=== PATIENT | female | born 1940 | race Caucasian/White ===

== ENCOUNTER → 2017-10-08 | Outpatient (CLI) | payer OTHER ==
[2015-08-24 02:40] VITALS: BP 136/84
--- NOTE | 2017-10-11 13:26 | MG ---
ACR 2 HISTORY: SCREENING Comparison: August 28, 2012 and September 26, 2016 FINDINGS: Bilateral CC and MLO projections of the right and left breast were obtained. Scattered fibroglandula r tissue is seen to be present without significant interval change. No suspicious architectural dist ortion, mass or clustered microcalcifications can be observed to suggest malignancy. No skin thicken ing or nipple retraction is appreciated. No pathological lymphadenopathy can be identified. Benign- appearing calcifications are noted within the right and left breast. IMPRESSION: NO RADIOGRAPHIC EVIDENCE OF MALIGNANCY. ACR CATEGORY 2 - benign findings. FOLLOW-UP EXAM 1 YEAR. Diagnostic CAD was utilized and reviewed. * 0 (ZERO) - ASSESSMENT INCOMPLETE; ADDITIONAL IMAGING IS NEEDED. * 1/1 (ONE) - NEGATIVE. * 2/II (TWO) - BENIGN FINDINGS. * 3/III (THREE) - PROBABLY BENIGN FINDING; SHORT INTERVAL FOLLOW-UP SUGGESTED. * 4/IV (FOUR) - SUSPICIOUS ABNORMALITY; BIOPSY SHOULD BE CONSIDERED. * 5/V - HIGHLY SUSPICIOUS OF MALIGNANCY; BIOPSY SHOULD BE PERFORMED. A NEGATIVE X-RAY REPORT SHOULD NOT DELAY BIOPSY IF A DOMINANT OR CLINICALLY SUSPICIOUS MASS IS PRESENT; 4 TO 8 PERCENT OF CANCERS ARE NOT IDENTIFIED BY X-RAY. A NEGA TIVE REPORT MAY REINFORCE THE CLINICAL IMPRESSION. ADENOSIS AND DENSE BREASTS MAY OBSCURE AN UNDERLY ING NEOPLASM. Reported By:
== END ==
LOC: RAD 09:49
PROVIDERS: ATTEND Specialist
DX: Z12.31 Encounter for screening mammogram for malignant neoplasm of breast (principal)
CPT/HCPCS: 77067

== ENCOUNTER 2019-08-19 11:06 | Observation (INO) ==
[2019-08-19 14:16] LABS: BASOPHILS # (AUTO) 0.1 X10^3/uL (0.0-0.1); EOSINOPHILS # (AUTO) 0.1 x10^3/uL (0.0-0.2); EOSINOPHILS % (AUTO) 0.6 % (0.9-2.9); HEMATOCRIT 43.3 % (36.0-47.0); HEMOGLOBIN 14.6 g/dL (12.0-16.0); LYMPHOCYTES # (AUTO) 1.4 X10^3/uL (1.3-2.9); LYMPHOCYTES % (AUTO) 14.5 % (21.0-51.0); MEAN CORPUSCULAR HEMOGLOBIN 31.7 pg (27.0-34.0); MEAN CORPUSCULAR HGB CONC 33.8 g/dL (33.0-35.0); MEAN CORPUSCULAR VOLUME 93.8 fL (80.0-100.0); MEAN PLATELET VOLUME 8.6 fL (7.4-11.0); MONOCYTES # (AUTO) 0.9 x10^3/uL (0.3-0.8); NEUTROPHILS # (AUTO) 6.9 x10^3/uL (2.2-4.8); NEUTROPHILS % (AUTO) 73.9 % (42.0-75.0); PLATELET COUNT 238 X10^3/uL (150.0-450.0); RED BLOOD COUNT 4.61 X10^6/uL (3.5-5.4); RED CELL DISTRIBUTION WIDTH 13.5 % (11.6-16.5); WHITE BLOOD COUNT 9.3 X10^3/uL (3.6-10.0)
[2019-08-19 14:24] LABS: ALANINE AMINOTRANSFERASE 15 Units/L (12-78); ALBUMIN 3.7 g/dL (3.4-5.0); ALKALINE PHOSPHATASE 79 Units/L (46-116); ASPARTATE AMINO TRANSFERASE 16 Units/L (15-37); BLOOD UREA NITROGEN 27 mg/dL (7-18); CALCIUM 9.6 mg/dL (8.5-10.1); CARBON DIOXIDE 25.3 mmol/L (21-32); CHLORIDE 107 mmol/L (98-107); CREATININE 1.27 mg/dL (0.55-1.02); SODIUM 141 mmol/L (136-145); TOTAL PROTEIN 7.6 g/dL (6.4-8.2); eGFR NON BLACK RACES 43 (>60)
[2019-08-19] MEDS: PEPCID 20 MG IV PREMIX* 20 MG/50 ML BAG IV SCH ×2 (14:24→20:35)
[2019-08-19] MEDS: NS 1000 ML 1,000 ML IV SCH (14:24)
[2019-08-19] MEDS: PROTONIX INJ 40 MG VIAL IVP SCH ×2 (14:25→20:35)
[2019-08-19 15:29] LABS: BILIRUBIN,URINE NEGATIVE (NEGATIVE); BLOOD/HEMOGLOBIN,URINE NEGATIVE (NEGATIVE); GLUCOSE, URINE NEGATIVE (NEGATIVE); KETONES,URINE NEGATIVE (NEGATIVE); LEUKOCYTE ESTERASE ,URINE NEGATIVE (NEGATIVE); NITRITES,URINE NEGATIVE (NEGATIVE); PROTEIN,URINE NEGATIVE (NEGATIVE); UROBILINOGEN,URINE NORMAL (NORMAL)
[2019-08-19 15:39] LABS: APPEARANCE,URINE CLEAR (CLEAR); COLOR,URINE PALE YELLOW (YELLOW)
--- NOTE | 2019-08-19 16:20 | DR.CONSULT ---
Consult - Consultation for Day of: Date: 08/19/19 - Chief Complaint Chief Complaint: Patient referred for rectal bleeding. Patient with complaints of hematochezia and LLQ Pain. - History of Present Illness History of Present Illness: Patient is a 79 yo female who was referred for rectal bleeding. Patient with complaints of hematochezia noted this am in stool has not seen anymore since and LLQ Pain. Patient denies dysphagia, dyspepsia, nausea, vomiting, constipation, diarrhea and melena. Last colon was 05/04/11 which showed internal hemorrhoids, sigmoid diverticulosis and hyperplastic colon polyps. Patient noted to have LLQ tenderness, Hgb 14.6, Hct 43.3, BUN 27, Creatinien 1.27 - Past Medical History Past Medical History: Coronary Artery Disease, Dyslipidemia, GERD, [place] Additional Medical History: psuedoaneurysm - Past Surgical History Surgical History: Angioplasty/Stents (x4 stents), Appendectomy, Cholecystectomy - Family History Family Medical History: Coronary Artery Disease, Hypertension - Social History Does patient currently use any type of tobacco product: No Have you used tobacco products in the last 12 months: No Type of Tobacco Use: None Does any household member use tobacco: No Alcohol Use: None Drug Use: None - Medications Home Medications: No Known Drug Allergies Allergy (Verified 08/19/19 13:41) CONTINUE taking the following medications aspirin [Aspir-81] 81 mg PO DAILY 08/19/19 [History] clopidogrel 75 mg PO DAILY 08/19/19 [History] metoprolol succinate 25 mg PO DAILY 08/19/19 [History] pantoprazole 40 mg PO DAILY 08/19/19 [History] rosuvastatin 10 mg PO HS 08/19/19 [History] - Review of Systems Gastrointestinal: See HPI, Abdominal Pain (LLQ), Hematochezia. denies: Nausea, Vomiting, Diarrhea, Constipation, Melena, Other - Physical Exam Vital Signs: Temperature 98.6 F Pulse Rate [Left Brachial] 84 Respiratory Rate 20 Blood Pressure [Right Arm] 136/84 Blood Pressure [Left Arm] 117/70 Blood Pressure 136/84 O2 Sat by Pulse Oximetry 92 Oriented: Normal Eyes: Normal Ear: Normal Nose: Normal Throat: Normal Respiratory: Clear Throughout Cardiovascular: Normal Auscultation: Bowel Sounds: Normal Palpation: Normal, Other (no distention). negative: Spleen Enlarged, Liver Enlarged, Mass Pulsatile Tenderness: LLQ Skin: Normal Musculoskeletal: Normal Psychiatric: Normal Mood Description: Calm Affect: Normal Speech Pattern: Clear, Appropriate - Plan Plan: Assessment. 1. Hematochezia, Hgb stable. 2. LLQ pain r/o diverticulitis. Plan. 1. Cont Iv Hydration, Monitor Hgb , Transfuse as needed, Possible colon on if CT scan Negative. 2. Abdoman and pelvis CT with contrast. Plan reviewed with Dr. Moore - Allergies Allergies/Adverse Reactions: Allergies Allergy/AdvReac Type Severity Reaction Status Date / Time No Known Drug Allergies Allergy Verified 08/19/19 13:41
[2019-08-19 16:37] VITALS: BMI 26.6
[2019-08-19] MEDS: RESTORIL CAP 15 MG PO PRN (23:27)
[2019-08-20 05:26] LABS: BASOPHILS # (AUTO) 0.1 X10^3/uL (0.0-0.1); BASOPHILS % (AUTO) 1.1 % (0.2-1.0); EOSINOPHILS # (AUTO) 0.2 x10^3/uL (0.0-0.2); EOSINOPHILS % (AUTO) 2.4 % (0.9-2.9); HEMOGLOBIN 13.5 g/dL (12.0-16.0); LYMPHOCYTES # (AUTO) 2.2 X10^3/uL (1.3-2.9); LYMPHOCYTES % (AUTO) 31.6 % (21.0-51.0); MEAN CORPUSCULAR HEMOGLOBIN 32.2 pg (27.0-34.0); MEAN CORPUSCULAR HGB CONC 33.8 g/dL (33.0-35.0); MEAN CORPUSCULAR VOLUME 95.1 fL (80.0-100.0); MEAN PLATELET VOLUME 9.5 fL (7.4-11.0); MONOCYTES # (AUTO) 0.8 x10^3/uL (0.3-0.8); MONOCYTES % (AUTO) 11.9 % (0.0-13.0); NEUTROPHILS # (AUTO) 3.8 x10^3/uL (2.2-4.8); PLATELET COUNT 222 X10^3/uL (150.0-450.0); RED BLOOD COUNT 4.21 X10^6/uL (3.5-5.4); RED CELL DISTRIBUTION WIDTH 13.5 % (11.6-16.5); WHITE BLOOD COUNT 7.1 X10^3/uL (3.6-10.0)
[2019-08-20] MEDS: NS 1000 ML 1,000 ML IV SCH ×2 (05:41→21:13)
[2019-08-20 05:47] LABS: ALANINE AMINOTRANSFERASE 13 Units/L (12-78); ALBUMIN 3.1 g/dL (3.4-5.0); ALKALINE PHOSPHATASE 68 Units/L (46-116); ASPARTATE AMINO TRANSFERASE 16 Units/L (15-37); BLOOD UREA NITROGEN 25 mg/dL (7-18); CALCIUM 8.8 mg/dL (8.5-10.1); CARBON DIOXIDE 22.5 mmol/L (21-32); CHLORIDE 110 mmol/L (98-107); COR CA(FOR HYPOALB) 9.5 mg/dL (8.5-10.1); SODIUM 143 mmol/L (136-145); TOTAL PROTEIN 6.6 g/dL (6.4-8.2); eGFR NON BLACK RACES 46 (>60)
--- NOTE | 2019-08-20 06:50 | CT ---
HISTORY: Left lower quadrant pain Study: CT abdomen pelvis with contrast Comparison: None available Technique: Axial post-contrast images with coronal and sagittal reformats. Dose reduction procedures were used with mA/kv adjusted for body size. Findings: The lung bases are clear. The liver, spleen, adrenal glands, and pancreas are within normal limits. The patient is status post cholecystectomy. The kidneys are unobstructed and without stones or masses. No ureteral calculi are identified. Mild calcific atherosclerotic changes present in and ectatic but nondilated abdominal aorta. There are no findings to suggest enteritis colitis or diverticulitis. The appendix is not identified with absolute certainty. There are no secondary signs of appendicitis present. examination of the pelvis demonstrated an 8.4 by 10.2 by 7.2 cm bilobed septated left adnexal cyst likely originating from the left ovary. The should be further evaluated sonographically in order to fully evaluate the internal architecture of this cyst. No pelvic fluid or pelvic lymphadenopathy is identified. No bladder abnormality is identified. No lytic or blastic skeletal lesions of significance are identified. IMPRESSION: A 0.4 x 10.2 x 7.2 cm bilobed septated left adnexal cyst which further evaluation with ultrasound is recommended. Reported By:
--- NOTE | 2019-08-20 08:37 | DR.UPDATE ---
H&P Update History and Physical Update: History and Physical reviewed and patient examined. Changes noted: Yes with the following: RETURNED TO THE OFFICE TODAY WITH COMPLAINTS OF RECTAL BLEEDING. SHE REPORTS BRIGHT RED BLOOD IN STOOL. SHE REPORTS TAKING SOMETHING FOR CONSTIPATION TWO DAYS AGO. SHE REPORTS MILD PAIN TO RECTUM. WE ADMITTED PATIENT FOR FURTHER EVALUATION AND TREATMENT. ON ARRIVAL TO THE HOSPITAL, VITALS WERE 98.6-84-20-92%-117/70. LABS WERE OBTAINED. ABNORMAL LAB VALUES INCLUDE THE FOLLOWING: BUN 27, CREATININE 1.27. URINALYSIS IS UNREMARKABLE. WE HAVE ORDERED FOR A STOOL TO BE COLLECTED FOR OCCULT BLOOD. WE WILL CONSULT WITH . WE WILL START NORMAL SALINE AT 80ML/HR, IV PEPCID, AND IV PROTONIX. OTHERWISE, WE WILL FOLLOW UP WITH AM LABS AND CONTINUE TO MONITOR. Prescription drug monitoring program results: PDMP was not reviewed
[2019-08-20] MEDS: PEPCID 20 MG IV PREMIX* 20 MG/50 ML BAG IV SCH ×2 (08:39→21:08)
[2019-08-20] MEDS: PROTONIX INJ 40 MG VIAL IVP SCH ×2 (08:39→21:08)
[2019-08-20] MEDS: ZOFRAN INJ 4 MG VIAL IVP PRN ×2 (15:30→21:14)
[2019-08-20] MEDS ORDERED: DULCOLAX TAB EC 5 MG PO ONE ×2 (16:09→21:00)
[2019-08-20] MEDS ORDERED: MIRALAX POWDER (255 GRAMS BTL) PO NR (17:00)
[2019-08-20] MEDS: RESTORIL CAP 15 MG PO PRN (21:10)
[2019-08-21 04:17] VITALS: BP 134/69
[2019-08-21 04:53] LABS: BASOPHILS # (AUTO) 0.1 X10^3/uL (0.0-0.1); BASOPHILS % (AUTO) 1.1 % (0.2-1.0); EOSINOPHILS # (AUTO) 0.2 x10^3/uL (0.0-0.2); EOSINOPHILS % (AUTO) 3.3 % (0.9-2.9); HEMATOCRIT 41.2 % (36.0-47.0); HEMOGLOBIN 13.8 g/dL (12.0-16.0); LYMPHOCYTES # (AUTO) 1.9 X10^3/uL (1.3-2.9); MEAN CORPUSCULAR HEMOGLOBIN 31.9 pg (27.0-34.0); MEAN CORPUSCULAR HGB CONC 33.4 g/dL (33.0-35.0); MEAN CORPUSCULAR VOLUME 95.3 fL (80.0-100.0); MEAN PLATELET VOLUME 9.3 fL (7.4-11.0); MONOCYTES # (AUTO) 0.8 x10^3/uL (0.3-0.8); MONOCYTES % (AUTO) 11.5 % (0.0-13.0); NEUTROPHILS # (AUTO) 3.7 x10^3/uL (2.2-4.8); NEUTROPHILS % (AUTO) 55.1 % (42.0-75.0); PLATELET COUNT 229 X10^3/uL (150.0-450.0); RED BLOOD COUNT 4.32 X10^6/uL (3.5-5.4); RED CELL DISTRIBUTION WIDTH 13.4 % (11.6-16.5); WHITE BLOOD COUNT 6.7 X10^3/uL (3.6-10.0)
[2019-08-21 05:07] LABS: ALANINE AMINOTRANSFERASE 13 Units/L (12-78); ALBUMIN 3.1 g/dL (3.4-5.0); ALKALINE PHOSPHATASE 65 Units/L (46-116); ASPARTATE AMINO TRANSFERASE 16 Units/L (15-37); BLOOD UREA NITROGEN 12 mg/dL (7-18); CALCIUM 8.9 mg/dL (8.5-10.1); CARBON DIOXIDE 25.2 mmol/L (21-32); CHLORIDE 111 mmol/L (98-107); COR CA(FOR HYPOALB) 9.6 mg/dL (8.5-10.1); CREATININE 0.99 mg/dL (0.55-1.02); SODIUM 144 mmol/L (136-145); TOTAL PROTEIN 6.6 g/dL (6.4-8.2); eGFR NON BLACK RACES 58 (>60)
[2019-08-21] MEDS: NS 1000 ML 1,000 ML IV SCH (05:54)
[2019-08-21] MEDS: PROTONIX INJ 40 MG VIAL IVP SCH (08:07)
[2019-08-21] MEDS: PEPCID 20 MG IV PREMIX* 20 MG/50 ML BAG IV SCH (08:07)
--- NOTE | 2019-08-21 10:45 | PCM.PROG ---
Progress Note - Progress Note for Day of Date of Exam: 08/20/19 - Subjective Subjective: WAS ADMITTED FOR RECTAL BLEEDING. TODAY, SHE IS ALERT AND ORIENTED, LYING IN BED ON MORNING ROUNDS. SHE REPORTS MILD, LOWER ABDOMINAL PAIN THIS MORNING. ON EXAMINATION, HEART IS REGULAR IN RATE AND RHYTHM. BILATERAL LUNGS ARE NOTED WITH DIMINISHED LUNG SOUNDS THROUGHOUT. ABDOMEN IS ROUND, SOFT, AND NOTED WITH MILD, SUPRAPUBIC TENDERNESS. NORMAL BOWEL SOUNDS ARE NOTED IN ALL QUADRANTS. HER VITALS THIS MORNING ARE: 98.0-63-18-96%-141/69. LABS WERE OBTAINED. ABNORMAL LAB VALUES INCLUDE THE FOLLOWING: CHLORIDE 110, BUN 25, CREATININE 1.20, ALBUMIN 3.1. AN ABDOMEN/PELVIS CT WAS OBTAINED THIS MORNING AND REVEALED: A 0.4 x 10.2 x 7.2 cm bilobed septated left adnexal cyst which further evaluation with ultrasound is recommended. PLANS FOR A COLONOSCOPY IN THE MORNING. WE ARE IN AGREEMENT WITH PLAN. SHE IS CURRENTLY RECEIVING NORMAL SALINE AT 80ML/HR, IV PEPCID, IV PROTONIX, IV ZOFRAN. WE WILL CONTINUE WITH CURRENT PLAN OF CARE TODAY. OTHERWISE, WE WILL FOLLOW UP WITH AM LABS AND CONTINUE TO MONITOR. - Past Medical Family Social History Past Med/Fam/Surg Hx: No changes since H&P Allergies: Allergies No Known Drug Allergies Allergy (Verified 08/19/19 13:41) - Review of Systems ROS: No change since H&P - Vital Signs and I&O's Vital Signs: Temperature 98.5 F Pulse Rate [Right Brachial] 63 Pulse Rate [Left Brachial] 73 Respiratory Rate 18 Blood Pressure [Right Arm] 141/69 Blood Pressure [Left Arm] 134/69 Blood Pressure 136/84 O2 Sat by Pulse Oximetry 96 Intake and Output: Intake & Output 08/18/19 08/19/19 08/20/19 08/21/19 11:59 11:59 11:59 11:59 Intake Total 520 / 520 2640 / 2640 Balance 520 / 520 2640 / 2640 - Physical Exam Oriented: Normal Eyes: Normal Ear: Normal Nose: Normal Throat: Normal Respiratory: Generalized, Diminished Cardiovascular: Normal : Normal Auscultation: Bowel Sounds: Normal Palpation: Normal Tenderness: Suprapubic, Mild Skin: Normal Musculoskeletal: Normal Psychiatric: Normal Mood Description: Calm Affect: Normal Speech Pattern: Clear, Appropriate - Laboratory and Diagnostics Result Diagrams: 08/21/19 04:18 08/21/19 04:18 Labs: Laboratory WBC 6.7 X10^3/uL (3.6-10.0) 08/21/19 04:18 RBC 4.32 X10^6/uL (3.5-5.4) 08/21/19 04:18 Hgb 13.8 g/dL (12.0-16.0) 08/21/19 04:18 Hct 41.2 % (36.0-47.0) 08/21/19 04:18 MCV 95.3 fL (80.0-100.0) 08/21/19 04:18 MCH 31.9 pg (27.0-34.0) 08/21/19 04:18 MCHC 33.4 g/dL (33.0-35.0) 08/21/19 04:18 RDW 13.4 % (11.6-16.5) 08/21/19 04:18 Plt Count 229 X10^3/uL (150.0-450.0) 08/21/19 04:18 MPV 9.3 fL (7.4-11.0) 08/21/19 04:18 Neut % (Auto) 55.1 % (42.0-75.0) 08/21/19 04:18 Lymph % (Auto) 29.0 % (21.0-51.0) 08/21/19 04:18 [place] % (Auto) 11.5 % (0.0-13.0) 08/21/19 04:18 Eos % (Auto) 3.3 % (0.9-2.9) H 08/21/19 04:18 Baso % (Auto) 1.1 % (0.2-1.0) H 08/21/19 04:18 Neut # (Auto) 3.7 x10^3/uL (2.2-4.8) 08/21/19 04:18 Lymph # (Auto) 1.9 X10^3/uL (1.3-2.9) 08/21/19 04:18 [place] # (Auto) 0.8 x10^3/uL (0.3-0.8) 08/21/19 04:18 Eos # (Auto) 0.2 x10^3/uL (0.0-0.2) 08/21/19 04:18 Baso # (Auto) 0.1 X10^3/uL (0.0-0.1) 08/21/19 04:18 Absolute Nucleated RBC 0.0 /100WBC 08/21/19 04:18 Sodium 144 mmol/L (136-145) 08/21/19 04:18 Corrected Sodium TNP 08/21/19 04:18 Potassium 3.8 mmol/L (3.5-5.1) 08/21/19 04:18 Chloride 111 mmol/L (98-107) H 08/21/19 04:18 Carbon Dioxide 25.2 mmol/L (21-32) 08/21/19 04:18 BUN 12 mg/dL (7-18) 08/21/19 04:18 Creatinine 0.99 mg/dL (0.55-1.02) 08/21/19 04:18 Est GFR (MDRD) Af Amer > 60 (>60) 08/21/19 04:18 Est GFR (MDRD) Non-Af 58 (>60) L 08/21/19 04:18 Glucose 93 mg/dL (65-99) 08/21/19 04:18 Calcium 8.9 mg/dL (8.5-10.1) 08/21/19 04:18 Corrected Calcium 9.6 mg/dL (8.5-10.1) 08/21/19 04:18 Total Bilirubin 0.40 mg/dL (0.2-1.0) 08/21/19 04:18 AST 16 Units/L (15-37) 08/21/19 04:18 ALT 13 Units/L (12-78) 08/21/19 04:18 Alkaline Phosphatase 65 Units/L (46-116) 08/21/19 04:18 Total Protein 6.6 g/dL (6.4-8.2) 08/21/19 04:18 Albumin 3.1 g/dL (3.4-5.0) L 08/21/19 04:18 Globulin 3.5 g/dL (2.5-4.5) 08/21/19 04:18 Albumin/Globulin Ratio 0.9 Ratio (1.1-2.1) L 08/21/19 04:18 Specimen Type Clean catch urine 08/19/19 15:10 Urine Color Pale yellow (YELLOW) 08/19/19 15:10 Urine Appearance Clear (CLEAR) 08/19/19 15:10 Urine pH 5.0 (5.0 - 8.0) 08/19/19 15:10 Ur Specific [place] 1.015 (1.000-1.030) 08/19/19 15:10 Urine Protein Negative (NEGATIVE) 08/19/19 15:10 Urine Glucose (UA) Negative (NEGATIVE) 08/19/19 15:10 Urine Ketones Negative (NEGATIVE) 08/19/19 15:10 Urine Occult Blood Negative (NEGATIVE) 08/19/19 15:10 Urine Nitrite Negative (NEGATIVE) 08/19/19 15:10 Urine Bilirubin Negative (NEGATIVE) 08/19/19 15:10 Urine Urobilinogen Normal (NORMAL) 08/19/19 15:10 Ur Leukocyte Esterase Negative (NEGATIVE) 08/19/19 15:10 - Plan (1) Rectal bleeding Status: Acute Plan: NORMAL SALINE AT 80ML/HR, IV PEPCID, IV PROTONIX, GI CONSULT, CONTINUE TO MONITOR
== END 2019-08-21 11:34 | disposition home or self-care (01) ==
LOC: MED/SURG
PROVIDERS: ADMIT Internal Medicine; ATTEND Internal Medicine
DX: K21.9 Gastro-esophageal reflux disease without esophagitis; K62.5 Hemorrhage of anus and rectum; E78.2 Mixed hyperlipidemia; I25.10 Atherosclerotic heart disease of native coronary artery without angina pectoris; Z79.01 Long term (current) use of anticoagulants; E27.8 Other specified disorders of adrenal gland; R94.4 Abnormal results of kidney function studies; Z79.899 Other long term (current) drug therapy
CPT/HCPCS: 36415; 74177; 80053; 81003; 85025; 96367; 96374; A4216; A4222; C9113; S0028; G0378; J2405; J7030

== ENCOUNTER 2021-12-07 15:33 | Observation (INO) ==
--- NOTE | 2021-12-07 15:55 | DR.WEAKNES ---
HPI Time Seen Time Seen by Provider: 12/07/21 15:36 HPI Comment HPI Comment: An 81 y/o female presenting with c/o transient los of speech today. Initial episode was about 1400 hrs. when she was calling a friend and couldn't get her words out. It resiolved shortly afterwards and she had called EMS,. The EMS staff staff states that her speech was clear upon their arrival to the house and en route to the ED. In transit here she states that she had a recurrence. THere was no associated chest pain, palpitations, SOB, nausea or vomiting. Reviewed Nurses Notes Reviewed: Yes Source History Provided: Patient Timing Since onset, symptoms are:: Resolved Symptom Onset: Known Context Onset: Spontaneous Symptoms: Difficulty talking Stroke Symptoms: Aphasia Location Weakness Location: Normal Associated Signs and Symptoms Associated Signs and Symptoms: None PMH PMH Past Medical History: Coronary Artery Disease, Dyslipidemia, GERD and [place] Past Surgical History: Yes Surgical History: Angioplasty/Stents (x4 stents), Appendectomy and Cholecystectomy Family History Family Medical History: Cancer, [place], Coronary Artery Disease and Hypertension Social History Do you use any recreational Drugs:: No ROS Review of Systems Constitutional: No Symptoms Reported Eyes: No Symptoms Reported ENTM: No Symptoms Reported Respiratoy: No Symptoms Reported Cardiovascular: No Symptoms Reported Gastrointestinal/Abdominal: No Symptoms Reported Genitourinary: No Symptoms Reported Neurological: Other (Loss of speech ) Musculoskeletal: No Symptoms Reported Integumentary: No Symptoms Reported Hematologic/Lymphatic: No Symptoms Reported Endocrine: No Symptoms Reported Psychiatric: No Symptoms Reported PE Vital Signs Vitals: Temperature 98.3 F Pulse Rate 60 Respiratory Rate 24 Blood Pressure [Right Arm] 141/69 Blood Pressure [Left Arm] 134/69 Blood Pressure 196/98 O2 Sat by Pulse Oximetry 96 General Limitations: No Limitations General Appearance: Alert and In No Apparent Distress Head Head Exam: Normal Inspection, Atraumatic and Normocephalic Eyes Eye exam: Normal Appearance and EOMI ENT ENT Exam: Normal Exam, Normal Oropharynx, Normal External Ear Exam, Mucous Membranes Moist and TM's Normal Bilaterally Neck Neck Exam: Normal Inspection, Full ROM and Trachea Midline Chest Chest Inspection: Normal Inspection and Symmetric Chest Wall Rise Respiratory Respiratory Exam: Normal Lung Sounds Bilat Cardiovascular Cardiovascular Exam: Regular Rate, Normal Rhythm, Normal Heart Sounds, +S1 and +S2 Abdominal Exam Abdominal Exam: Normal Inspection, Normal Bowel Sounds and Soft Extremities Extremities Exam: Normal Inspection and Full ROM Back Back Exam: Normal Inspection and Full ROM Neurologic Neurological Exam: Alert, Oriented X3 and CN II-XII Intact Cerebellar Function: Finger to Nose: Normal and Heel to Hernandez: Normal Motor Strength - LUE: 5/5 Motor Strength - RUE: 5/5 Motor Strength - LLE: 5/5 Motor Strength - RLE: 5/5 Psychiatric Psychiatric Exam: Normal Affect and Normal Mood Skin Skin Exam: Intact MDM Differential Diagnosis Differential Diagnosis: CVA, Electrolyte Disorder, Hypoglycemia, SAH and TIA COURSE Reevaluation 1st: Improved 2nd: Unchanged Education/Counseling Education/Counseling: Patient, Family, Education and Counseling Educated On: Treatment, Diagnosis, Prognosis and Needs for Follow Up ROR Labs Reviewed Laboratory Results Reviewed?: Yes Result Diagrams: 12/07/21 15:50 12/07/21 15:50 Laboratory: WBC 7.8 X10^3/uL (3.6-10.0) 12/07/21 15:50 RBC 4.66 X10^6/uL (3.5-5.4) 12/07/21 15:50 Hgb 14.4 g/dL (12.0-16.0) 12/07/21 15:50 Hct 43.3 % (36.0-47.0) 12/07/21 15:50 MCV 92.9 fL (80.0-100.0) 12/07/21 15:50 MCH 30.9 pg (27.0-34.0) 12/07/21 15:50 MCHC 33.3 g/dL (33.0-35.0) 12/07/21 15:50 RDW 14.0 % (11.6-16.5) 12/07/21 15:50 Plt Count 276 X10^3/uL (150.0-450.0) 12/07/21 15:50 MPV 8.8 fL (7.4-11.0) 12/07/21 15:50 Neut % (Auto) 62.9 % (42.0-75.0) 12/07/21 15:50 Lymph % (Auto) 24.7 % (21.0-51.0) 12/07/21 15:50 [place] % (Auto) 9.2 % (0.0-13.0) 12/07/21 15:50 Eos % (Auto) 2.1 % (0.9-2.9) 12/07/21 15:50 Baso % (Auto) 1.1 % (0.2-1.0) H 12/07/21 15:50 Neut # (Auto) 4.9 x10^3/uL (2.2-4.8) H 12/07/21 15:50 Lymph # (Auto) 1.9 X10^3/uL (1.3-2.9) 12/07/21 15:50 [place] # (Auto) 0.7 x10^3/uL (0.3-0.8) 12/07/21 15:50 Eos # (Auto) 0.2 x10^3/uL (0.0-0.2) 12/07/21 15:50 Baso # (Auto) 0.1 X10^3/uL (0.0-0.1) 12/07/21 15:50 Absolute Nucleated RBC 0.0 /100WBC 12/07/21 15:50 PT 12.9 SECONDS (11.8-14.3) 12/07/21 15:50 INR Target Range - 12/07/21 15:50 INR 1.02 (0.8-1.3) 12/07/21 15:50 APTT 28.5 SECONDS (22.9-36.5) 12/07/21 15:50 PTT Comment - 12/07/21 15:50 Fibrinogen 368 mg/dL (239-489) 12/07/21 15:50 Sodium 144 mmol/L (136-145) 12/07/21 15:50 Corrected Sodium 144 mmol/L (136-145) 12/07/21 15:50 Potassium 4.4 mmol/L (3.5-5.1) 12/07/21 15:50 Chloride 109 mmol/L (98-107) H 12/07/21 15:50 Carbon Dioxide 27.7 mmol/L (21-32) 12/07/21 15:50 BUN 30 mg/dL (7-18) H 12/07/21 15:50 Creatinine 1.29 mg/dL (0.55-1.02) H 12/07/21 15:50 Est GFR (MDRD) Af Amer 51 (>60) L 12/07/21 15:50 Est GFR (MDRD) Non-Af 42 (>60) L 12/07/21 15:50 Glucose 115 mg/dL (65-99) H 12/07/21 15:50 Calcium 9.1 mg/dL (8.5-10.1) 12/07/21 15:50 Corrected Calcium TNP 12/07/21 15:50 Total Bilirubin 0.20 mg/dL (0.2-1.0) 12/07/21 15:50 AST 11 Units/L (15-37) L 12/07/21 15:50 ALT 14 Units/L (12-78) 12/07/21 15:50 Alkaline Phosphatase 78 Units/L (46-116) 12/07/21 15:50 Creatine Kinase 51 Units/L (26-192) 12/07/21 15:50 CK-MB (CK-2) 1.0 ng/mL (0-4.0) 12/07/21 15:50 CK/CKMB % Calc 2.0 % (<4) 12/07/21 15:50 Troponin I High Sens 7.1 ng/L (4.0-60.0) 12/07/21 15:50 Total Protein 7.4 g/dL (6.4-8.2) 12/07/21 15:50 Albumin 3.5 g/dL (3.4-5.0) 12/07/21 15:50 Globulin 3.9 g/dL (2.5-4.5) 12/07/21 15:50 Albumin/Globulin Ratio 0.9 Ratio (1.1-2.1) L 12/07/21 15:50 Specimen Type Clean catch urine 12/07/21 16:19 Urine Color Yellow (YELLOW) 12/07/21 16:19 Urine Appearance Clear (CLEAR) 12/07/21 16:19 Urine pH 5.0 (5.0 - 8.0) 12/07/21 16:19 Ur Specific [place] 1.015 (1.000-1.030) 12/07/21 16:19 Urine Protein Negative (NEGATIVE) 12/07/21 16:19 Urine Glucose (UA) Negative (NEGATIVE) 12/07/21 16:19 Urine Ketones Negative (NEGATIVE) 12/07/21 16:19 Urine Occult Blood 1+ (NEGATIVE) 12/07/21 16:19 Urine Nitrite Negative (NEGATIVE) 12/07/21 16:19 Urine Bilirubin Negative (NEGATIVE) 12/07/21 16:19 Urine Urobilinogen Normal (NORMAL) 12/07/21 16:19 Ur Leukocyte Esterase Negative (NEGATIVE) 12/07/21 16:19 Urine RBC 3-5 /HPF (0-3) A 12/07/21 16:19 Urine WBC 0-2 /HPF (0-5) 12/07/21 16:19 Ur Squamous Epith Cells Few /HPF (NEGATIVE) 12/07/21 16:19 Urine Bacteria Trace /HPF (NEGATIVE) 12/07/21 16:19 Ur Culture Indicated? No/not indicated 12/07/21 16:19 EKG Rate: 65 Point Clear: Normal Rhythm: NSR Block: None Hypertrophy: LVH ST: Normal Opioid Opioid Risk Tool History of Preadolescent Sexual Abuse: No Total: 0 Total Score Risk Category: Low Risk Copyright: [facility] predicting aberrant behaviors Diagnosis Discharge Problem: Brain TIA HTN (hypertension) Qualifiers: Hypertension type: primary hypertension Qualified Code(s): I10 - Essential (primary) hypertension GERD (gastroesophageal reflux disease) Qualifiers: Esophagitis presence: without esophagitis Qualified Code(s): K21.9 - Gastro- esophageal reflux disease without esophagitis CKD (chronic kidney disease) stage 3, GFR 30-59 ml/min Qualifiers: Chronic kidney disease stage 3 subtype: stage 3a (GFR 45-59) Qualified Code(s): N18.31 - Chronic kidney disease, stage 3a ADDITIONAL NOTES Additional Notes Additional Notes: Name: MERCY RICE NAcct#: [id number]: [id number] : 1940ex: FLocation: ER Order Number(s): [id number](s):BRAIN W/O CON Ordering Physician: RAMOS INFANTE Primary Care: Jonel Mtz Service Date: 12/07/21 Service Time: 1541 BRAIN W/O CON CLINICAL INDICATION: Inability to speak TECHNIQUE: Images were obtained through the head per standard CT protocol. Multiplanar reformatted images were generated from the CT dataset. Dose reduction techniques including Automated Exposure Control (AEC) and adjustment of mA and kV were utlized. COMPARISON:None FINDINGS: Diffuse patchy and confluent periventricular and subcortical hypoattenuation with associated volume loss . There is no evidence of acute infarction, intracranial hemorrhage, mass or mass effect, or abnormal extra-axial collection . The density of the larger dural venous sinuses is normal. Age-related, ex-vacuo dilatation of the ventricles and sulci . The skull base and calvarium are normal . The included paranasal sinuses and mastoid air cells are predominantly clear . IMPRESSION: 1. No acute intracranial abnormality. 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 Report Electronically signed: 12/07/21 [id number] CC: Ramos Infante
[2021-12-07 16:00] LABS: BASOPHILS # (AUTO) 0.1 X10^3/uL (0.0-0.1); BASOPHILS % (AUTO) 1.1 % (0.2-1.0); EOSINOPHILS # (AUTO) 0.2 x10^3/uL (0.0-0.2); EOSINOPHILS % (AUTO) 2.1 % (0.9-2.9); HEMATOCRIT 43.3 % (36.0-47.0); HEMOGLOBIN 14.4 g/dL (12.0-16.0); LYMPHOCYTES # (AUTO) 1.9 X10^3/uL (1.3-2.9); LYMPHOCYTES % (AUTO) 24.7 % (21.0-51.0); MEAN CORPUSCULAR HEMOGLOBIN 30.9 pg (27.0-34.0); MEAN CORPUSCULAR HGB CONC 33.3 g/dL (33.0-35.0); MEAN CORPUSCULAR VOLUME 92.9 fL (80.0-100.0); MEAN PLATELET VOLUME 8.8 fL (7.4-11.0); MONOCYTES # (AUTO) 0.7 x10^3/uL (0.3-0.8); MONOCYTES % (AUTO) 9.2 % (0.0-13.0); NEUTROPHILS # (AUTO) 4.9 x10^3/uL (2.2-4.8); NEUTROPHILS % (AUTO) 62.9 % (42.0-75.0); RED BLOOD COUNT 4.66 X10^6/uL (3.5-5.4); WHITE BLOOD COUNT 7.8 X10^3/uL (3.6-10.0)
[2021-12-07 16:05] VITALS: BMI 27.3
[2021-12-07 16:28] LABS: BILIRUBIN,URINE NEGATIVE (NEGATIVE); BLOOD/HEMOGLOBIN,URINE 1+ (NEGATIVE); GLUCOSE, URINE NEGATIVE (NEGATIVE); KETONES,URINE NEGATIVE (NEGATIVE); LEUKOCYTE ESTERASE ,URINE NEGATIVE (NEGATIVE); NITRITES,URINE NEGATIVE (NEGATIVE); PROTEIN,URINE NEGATIVE (NEGATIVE); UROBILINOGEN,URINE NORMAL (NORMAL)
--- NOTE | 2021-12-07 16:30 | CT ---
BRAIN W/O CONCLINICAL INDICATION: Inability to speakTECHNIQUE: Images were obtained through the head per standard CT protocol. Multiplanar reformatted images were generated from the CT dataset. Dose reduction techniques including Automated Exposure Control (AEC) and adjustment of mA and kV were utlized.COMPARISON:NoneFINDINGS:Diffuse patchy and confluent periventricular and subcortical hypoattenuation with associated volume loss . There is no evidence of acute infarction, intracranial hemorrhage, mass or mass effect, or abnormal extra-axial collection . The density of the larger dural venous sinuses is normal. Age-related, ex-vacuo dilatation of the ventricles and sulci . The skull base and calvarium are normal . The included paranasal sinuses and mastoid air cells are predominantly clear .IMPRESSION:1. No acute intracranial abnormality. 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
[2021-12-07 16:35] LABS: ALANINE AMINOTRANSFERASE 14 Units/L (12-78); ALBUMIN 3.5 g/dL (3.4-5.0); ALKALINE PHOSPHATASE 78 Units/L (46-116); ASPARTATE AMINO TRANSFERASE 11 Units/L (15-37); BLOOD UREA NITROGEN 30 mg/dL (7-18); CALCIUM 9.1 mg/dL (8.5-10.1); CARBON DIOXIDE 27.7 mmol/L (21-32); CHLORIDE 109 mmol/L (98-107); COR NA(FOR HYPERGLY) 144 mmol/L (136-145); CREATINE KINASE 51 Units/L (26-192); CREATININE 1.29 mg/dL (0.55-1.02); SODIUM 144 mmol/L (136-145); TOTAL PROTEIN 7.4 g/dL (6.4-8.2); eGFR NON BLACK RACES 42 (>60)
[2021-12-07 16:44] LABS: APPEARANCE,URINE CLEAR (CLEAR); BACTERIA,URINE TRACE /HPF (NEGATIVE); COLOR,URINE YELLOW (YELLOW); SQUAMOUS EPITHELIAL CELL,UR FEW /HPF (NEGATIVE)
--- NOTE | 2021-12-07 16:55 | RAD ---
HISTORYAPHASIA, WEAKNESSSTUDYCHEST, 1 VIEWCOMPARISONNo recent comparison studies availableTECHNIQUESingle PA view of the chestFINDINGSThe lungs are equally expanded with no organized infiltrates. The pleural spaces are clear. There is no evidence of free air or pneumothorax. The heart size is average. An uncoiled, tortuous thoracic aorta is noted. Coronary artery stents are in place along the left heart border. No acute osseous abnormalities are identified.IMPRESSIONNo acute radiographic abnormalities of the chestElectronically signed by: CHIN BRANNON (Dec 07, 2021 16:55:14)
[2021-12-07] MEDS: ZOCOR TAB 10 MG PO SCH (20:55)
[2021-12-07] MEDS ORDERED: CRESTOR TAB 10 MG PO SCH (21:00)
[2021-12-07] MEDS: TYLENOL 325 MG TAB PO PRN (23:41)
[2021-12-08] MEDS: TYLENOL 325 MG TAB PO PRN (04:51)
[2021-12-08 06:31] LABS: BASOPHILS # (AUTO) 0.1 X10^3/uL (0.0-0.1); BASOPHILS % (AUTO) 1.2 % (0.2-1.0); EOSINOPHILS # (AUTO) 0.2 x10^3/uL (0.0-0.2); EOSINOPHILS % (AUTO) 2.9 % (0.9-2.9); HEMATOCRIT 41.2 % (36.0-47.0); HEMOGLOBIN 13.9 g/dL (12.0-16.0); LYMPHOCYTES # (AUTO) 1.8 X10^3/uL (1.3-2.9); LYMPHOCYTES % (AUTO) 22.1 % (21.0-51.0); MEAN CORPUSCULAR HEMOGLOBIN 31.1 pg (27.0-34.0); MEAN CORPUSCULAR HGB CONC 33.8 g/dL (33.0-35.0); MEAN PLATELET VOLUME 8.8 fL (7.4-11.0); MONOCYTES % (AUTO) 12.1 % (0.0-13.0); NEUTROPHILS # (AUTO) 5.1 x10^3/uL (2.2-4.8); NEUTROPHILS % (AUTO) 61.7 % (42.0-75.0); RED BLOOD COUNT 4.47 X10^6/uL (3.5-5.4); RED CELL DISTRIBUTION WIDTH 13.9 % (11.6-16.5); WHITE BLOOD COUNT 8.2 X10^3/uL (3.6-10.0)
[2021-12-08 06:51] LABS: ALANINE AMINOTRANSFERASE 15 Units/L (12-78); ALBUMIN 3.2 g/dL (3.4-5.0); ALKALINE PHOSPHATASE 67 Units/L (46-116); ASPARTATE AMINO TRANSFERASE 15 Units/L (15-37); BLOOD UREA NITROGEN 34 mg/dL (7-18); CALCIUM 8.9 mg/dL (8.5-10.1); CARBON DIOXIDE 23.2 mmol/L (21-32); CHLORIDE 110 mmol/L (98-107); CHOL/HDL RATIO 4.7 (0.0-5.0); CHOLESTEROL 225 mg/dL (0-200); COR CA(FOR HYPOALB) 9.5 mg/dL (8.5-10.1); CREATININE 1.49 mg/dL (0.55-1.02); HDL CHOLESTEROL 48 mg/dL (40-60); SODIUM 144 mmol/L (136-145); TOTAL PROTEIN 6.7 g/dL (6.4-8.2); TRIGLYCERIDES 117 mg/dL (0-150); eGFR NON BLACK RACES 36 (>60)
[2021-12-08] MEDS ORDERED: PLAVIX ONE (07:45)
[2021-12-08] MEDS ORDERED: TOPROL XL PO ONE ×3 (07:46→13:55)
[2021-12-08] MEDS ORDERED: ASPIRIN EC 81 MG PO ONE (07:46)
[2021-12-08] MEDS ORDERED: PROTONIX TAB 40 MG PO ONE (07:46)
[2021-12-08] MEDS ORDERED: VITAMIN D3 125 mcg (5,000 UNITS) ONE (07:47)
[2021-12-08] MEDS ORDERED: SYNTHROID 25 mcg TAB ONE (07:47)
[2021-12-08] MEDS: SYNTHROID 25 mcg TAB PO SCH (08:18)
[2021-12-08] MEDS: VITAMIN D3 125 mcg (5,000 UNITS) PO SCH (08:18)
[2021-12-08] MEDS: PROTONIX TAB 40 MG PO SCH (08:18)
[2021-12-08] MEDS: ASPIRIN EC 81 MG PO SCH (08:19)
[2021-12-08] MEDS ORDERED: PLAVIX PO SCH (09:00)
[2021-12-08] MEDS ORDERED: COENZYME Q10 75 MG PO SCH (09:00)
[2021-12-08] MEDS ORDERED: TOPROL XL PO SCH (09:00)
--- NOTE | 2021-12-08 09:59 | DR.H&P ---
H&P History & Physical for Day of: H&P Date: 12/07/21 Chief Complaint Chief Complaint: Can't get my words out. Allergies Allergies Allergy/AdvReac Type Severity Reaction Status Date / Time No Known Drug Allergies Allergy Verified 12/07/21 15:34 History of Present Illness History of Present Illness: This is an 81-year-old white female who presented to [facility] ED for aphasia. She called EMS yesterday afternoon after she was speaking to a friend on the telephone when she was all of a sudden unable to say what she wanted. She called EMS and when they arrived, she was able to speak normally again. She denies unilateral weakness, ptosis, loss of sensation and no headaches. Denies chest pain, palpitations and SOB. Past Medical History Past Medical History: Coronary Artery Disease, Dyslipidemia, GERD and [place] Additional Medical History: psuedoaneurysm Past Surgical History Surgical History: Appendectomy and Ortho Surgery Family History Family Medical History: Diabetes Mellitus and Cancer Social History Does patient currently use any type of tobacco product: No Have you used tobacco products in the last 12 months: No Type of Tobacco Use: None Does any household member use tobacco: No Alcohol Use: None Drug Use: None Medications Home Medications: No Known Drug Allergies Allergy (Verified 12/07/21 15:34) CONTINUE taking the following medications cholecalciferol (vitamin D3) [Vitamin D3] 125 mcg PO DAILY 12/07/21 [History] coenzyme Q10 [Ultra CoQ10] 100 mg PO DAILY 12/07/21 [History] levothyroxine 25 mcg PO DAILY 12/07/21 [History] simvastatin [Zocor] 10 mg PO QHS 12/07/21 [History] Labs Result Diagrams: 12/08/21 06:05 12/08/21 06:05 Labs: Laboratory WBC 8.2 X10^3/uL (3.6-10.0) 12/08/21 06:05 RBC 4.47 X10^6/uL (3.5-5.4) 12/08/21 06:05 Hgb 13.9 g/dL (12.0-16.0) 12/08/21 06:05 Hct 41.2 % (36.0-47.0) 12/08/21 06:05 MCV 92.0 fL (80.0-100.0) 12/08/21 06:05 MCH 31.1 pg (27.0-34.0) 12/08/21 06:05 MCHC 33.8 g/dL (33.0-35.0) 12/08/21 06:05 RDW 13.9 % (11.6-16.5) 12/08/21 06:05 Plt Count 261 X10^3/uL (150.0-450.0) 12/08/21 06:05 MPV 8.8 fL (7.4-11.0) 12/08/21 06:05 Neut % (Auto) 61.7 % (42.0-75.0) 12/08/21 06:05 Lymph % (Auto) 22.1 % (21.0-51.0) 12/08/21 06:05 [place] % (Auto) 12.1 % (0.0-13.0) 12/08/21 06:05 Eos % (Auto) 2.9 % (0.9-2.9) 12/08/21 06:05 Baso % (Auto) 1.2 % (0.2-1.0) H 12/08/21 06:05 Neut # (Auto) 5.1 x10^3/uL (2.2-4.8) H 12/08/21 06:05 Lymph # (Auto) 1.8 X10^3/uL (1.3-2.9) 12/08/21 06:05 [place] # (Auto) 1.0 x10^3/uL (0.3-0.8) H 12/08/21 06:05 Eos # (Auto) 0.2 x10^3/uL (0.0-0.2) 12/08/21 06:05 Baso # (Auto) 0.1 X10^3/uL (0.0-0.1) 12/08/21 06:05 Absolute Nucleated RBC 0.1 /100WBC 12/08/21 06:05 PT 12.9 SECONDS (11.8-14.3) 12/07/21 15:50 INR Target Range - 12/07/21 15:50 INR 1.02 (0.8-1.3) 12/07/21 15:50 APTT 28.5 SECONDS (22.9-36.5) 12/07/21 15:50 PTT Comment - 12/07/21 15:50 Fibrinogen 368 mg/dL (239-489) 12/07/21 15:50 Sodium 144 mmol/L (136-145) 12/08/21 06:05 Corrected Sodium TNP 12/08/21 06:05 Potassium 4.4 mmol/L (3.5-5.1) 12/08/21 06:05 Chloride 110 mmol/L (98-107) H 12/08/21 06:05 Carbon Dioxide 23.2 mmol/L (21-32) 12/08/21 06:05 BUN 34 mg/dL (7-18) H 12/08/21 06:05 Creatinine 1.49 mg/dL (0.55-1.02) H 12/08/21 06:05 Est GFR (MDRD) Af Amer 43 (>60) L 12/08/21 06:05 Est GFR (MDRD) Non-Af 36 (>60) L 12/08/21 06:05 Glucose 99 mg/dL (65-99) 12/08/21 06:05 Calcium 8.9 mg/dL (8.5-10.1) 12/08/21 06:05 Corrected Calcium 9.5 mg/dL (8.5-10.1) 12/08/21 06:05 Total Bilirubin 0.20 mg/dL (0.2-1.0) 12/08/21 06:05 AST 15 Units/L (15-37) 12/08/21 06:05 ALT 15 Units/L (12-78) 12/08/21 06:05 Alkaline Phosphatase 67 Units/L (46-116) 12/08/21 06:05 Creatine Kinase 51 Units/L (26-192) 12/07/21 15:50 CK-MB (CK-2) 1.0 ng/mL (0-4.0) 12/07/21 15:50 CK/CKMB % Calc 2.0 % (<4) 12/07/21 15:50 Troponin I High Sens 7.1 ng/L (4.0-60.0) 12/07/21 15:50 Total Protein 6.7 g/dL (6.4-8.2) 12/08/21 06:05 Albumin 3.2 g/dL (3.4-5.0) L 12/08/21 06:05 Globulin 3.5 g/dL (2.5-4.5) 12/08/21 06:05 Albumin/Globulin Ratio 0.9 Ratio (1.1-2.1) L 12/08/21 06:05 Triglycerides 117 mg/dL (0-150) 12/08/21 06:05 Cholesterol 225 mg/dL (0-200) H 12/08/21 06:05 LDL Cholesterol, Calc 154 mg/dL (0-100) H 12/08/21 06:05 HDL Cholesterol 48 mg/dL (40-60) 12/08/21 06:05 Cholesterol/HDL Ratio 4.7 (0.0-5.0) 12/08/21 06:05 Specimen Type Clean catch urine 12/07/21 16:19 Urine Color Yellow (YELLOW) 12/07/21 16:19 Urine Appearance Clear (CLEAR) 12/07/21 16:19 Urine pH 5.0 (5.0 - 8.0) 12/07/21 16:19 Ur Specific [place] 1.015 (1.000-1.030) 12/07/21 16:19 Urine Protein Negative (NEGATIVE) 12/07/21 16:19 Urine Glucose (UA) Negative (NEGATIVE) 12/07/21 16:19 Urine Ketones Negative (NEGATIVE) 12/07/21 16:19 Urine Occult Blood 1+ (NEGATIVE) 12/07/21 16:19 Urine Nitrite Negative (NEGATIVE) 12/07/21 16:19 Urine Bilirubin Negative (NEGATIVE) 12/07/21 16:19 Urine Urobilinogen Normal (NORMAL) 12/07/21 16:19 Ur Leukocyte Esterase Negative (NEGATIVE) 12/07/21 16:19 Urine RBC 3-5 /HPF (0-3) A 12/07/21 16:19 Urine WBC 0-2 /HPF (0-5) 12/07/21 16:19 Ur Squamous Epith Cells Few /HPF (NEGATIVE) 12/07/21 16:19 Urine Bacteria Trace /HPF (NEGATIVE) 12/07/21 16:19 Ur Culture Indicated? No/not indicated 12/07/21 16:19 SARS-CoV-2 (PCR) Negative (NEGATIVE) 12/07/21 17:26 Influenza Type A (PCR) Negative (NEGATIVE) 12/07/21 17:26 Influenza Type B (PCR) Negative (NEGATIVE) 12/07/21 17:26 RSV (PCR) Negative (NEGATIVE) 12/07/21 17:26 Review of Systems Constitutional: No Symptoms Reported Eyes: No Symptoms Reported ENT: No Symptoms Reported Respiratory: No Symptoms Reported Cardiovascular: No Symptoms Reported Gastrointestinal: No Symptoms Reported Genitourinary: No Symptoms Reported Musculoskeletal: No Symptoms Reported Skin: No Symptoms Reported Neurological: Other (aphasia) Physical Exam Vital Signs: Temperature 97.8 F Pulse Rate [Bilateral Radial] 65 Pulse Rate 60 Respiratory Rate 20 Blood Pressure [Right Arm] 135/64 Blood Pressure [Left Arm] 134/69 Blood Pressure 188/81 O2 Sat by Pulse Oximetry 93 Oriented: Normal Eyes: Normal Ear: Normal Nose: Normal Throat: Normal Respiratory: Clear Throughout Cardiovascular: Normal : Normal Auscultation: Bowel Sounds: Normal Palpation: Normal Tenderness: Normal Skin: Normal Musculoskeletal: Normal Psychiatric: Normal Mood Description: Calm Affect: Normal Speech Pattern: Clear and Appropriate Assessment/Plan (1) Brain TIA: Status: Acute Plan: MRI brain this am. Carotid Dopplers today. (2) CKD (chronic kidney disease) stage 3, GFR 30-59 ml/min: Qualifiers: Chronic kidney disease stage 3 subtype: stage 3a (GFR 45-59) Qualified Code(s): N18.31 - Chronic kidney disease, stage 3a Status: Acute (3) HTN (hypertension): Qualifiers: Hypertension type: primary hypertension Qualified Code(s): I10 - Essential (primary) hypertension Status: Acute Plan: Metoprolol ER 100 mg daily. (4) Dyslipidemia: Status: Acute Plan: Continue Simvastatin 20 mg Q HS Review H&P Reviewed: Yes Patient was examined?: Yes
--- NOTE | 2021-12-08 10:13 | MRI ---
HISTORYTIA/APHASIASTUDYBRAIN W/O CONCOMPARISONCT brain from 1 day prior.TECHNIQUEMultiplanar multi-sequence MRI of the brain was obtained utilizing standard departmental protocol. Sagittal and axial T1 weighted images were obtained. Axial T2 and flair weighted images were performed as well. Axial diffusion weighted and ADC trace mapping was performed.FINDINGSDiffusion imaging: [Punctate restricted diffusion in the left frontal lobe involving the middle frontal gyrus image 20 series 502. Punctate cortical restricted diffusion in the posterior left temporal lobe.]Susceptibility weighted imaging: [Punctate susceptibility artifact in bilateral cerebellar hemispheres image 5 axial T2 star. Punctate susceptibility in the bilateral hippocampi by. Punctate susceptibility artifact in the left thalamus.]Brain volume: [Appropriate for age.]Ventricles and basal cisterns: [Normal for age.]Extra-axial spaces: [No extra-axial collection.]Cerebral parynchema: [No mass, hematoma, or mass effect.] Moderate amount of T2 and Flair hyperintensities in the supratentorial subcortical and deep white matter. Chronic pontine lacunar infarcts. Chronic bilateral basal ganglia and thalamus lacunar infarcts.Pituitary and other sagittal midline structures: [Normal.]Visualized orbits: [Normal.]Paranasal sinuses and mastoid air cells: [Trace fluid in the right mastoid air cells.]Bones: [Intact.]Other: [None.]IMPRESSION[Punctate restricted diffusion consistent with acute or subacute lacunar infarct in the left frontal lobe and posterior left temporal lobe.Moderate chronic small vessel disease. Chronic bilateral basal ganglia, thalami, and pontine lacunar infarcts.]Electronically signed by: Rashard Little (Dec 08, 2021 10:12:17)
--- NOTE | 2021-12-08 11:15 | VAS ---
HISTORY:TIA, hypertension, difficulty speakingStudy: Bilateral Carotid UltrasoundComparison:NoneTechnique: Multiple harp scale and color flow Doppler images of the right and left carotid arterial system were obtained. The vertebral arterial system was evaluated as well.Findings:Normal color flow Doppler is seen throughout the right and left carotid arterial system. There is bulky calcified plaque present at the bilateral carotid bifurcations, greater on the right-side. Peak systolic velocity in the right ICA is 75 cm/sec. Peak systolic velocity in the left ICA is 83 cm/sec. The right ICA/CCA ratio is 1. The left ICA/CCA ratio is1.5. The right and left vertebral arteries demonstrate antegrade flowIMPRESSION:1.Bulky calcified plaque at the bilateral carotid bifurcations but without evidence of significant stenosis by velocity criteria. Consider CTA neck for further evaluation if indicated.2. Normal antegrade flow in the vertebral arteries.Electronically signed by: LENNOX CHIN (Dec 08, 2021 11:14:39)
--- NOTE | 2021-12-08 16:17 | MRI ---
HISTORY:CVAStudy: MRA brain without contrastComparison: MRI same dayTechnique: [id number] imaging of the brain was performed without contrast and supplemented with 3D reconstructed images.Findings:There is moderate to severe stenosis of the left A2 segment. Right VERONA appears normal. There is mild narrowing the distal left M2 segment. M1 segments appear normal. The distal ICAs and carotid siphons are normal. No major branch vessel occlusion, aneurysm, or vascular malformation is identified. Vertebrobasilar circulation appears normal. Bilateral posterior cerebral arteries appear patent.IMPRESSION:Moderate to severe narrowing of the left A2 segment.Mild narrowing of distal left M2 segment. M1 segments appear normal.No major branch vessel occlusion or intracranial aneurysm identified.Electronically signed by: LENNOX CHIN (Dec 08, 2021 16:15:28)
[2021-12-08] MEDS ORDERED: MAALOX or MYLANTA PO PRN (18:08)
--- NOTE | 2021-12-08 18:56 | PCM.PROG ---
Progress Note Progress Note for Day of Date of Exam: 12/08/21 Subjective Subjective: Patient feels better today. Able to speak now and express what she wants to say. MRI shows acute to subacute CVA in the left frontal and posterior temporal lobes. Carotid dopplers show calcification of the bifurcation of the carotid arteries. Will plan on CTA of neck in am after a night of IV hydration given her Cr was to high today. Check MRA later today as well. Past Medical Family Social History Past Med/Fam/Surg Hx: No changes since H&P Allergies: Allergies No Known Drug Allergies Allergy (Verified 12/07/21 15:34) Review of Systems ROS: No change since H&P Vital Signs and I&O's Vital Signs: Temperature 98.4 F Pulse Rate [Bilateral Radial] 87 Pulse Rate 60 Respiratory Rate 18 Blood Pressure [Right Arm] 139/78 Blood Pressure [Left Arm] 134/69 Blood Pressure 188/81 O2 Sat by Pulse Oximetry 97 Intake and Output: Intake & Output 12/06/21 12/07/21 12/08/21 12/09/21 11:59 11:59 11:59 11:59 Intake Total 350 / 350 480 / 480 Balance 350 / 350 480 / 480 Physical Exam Oriented: Normal Eyes: Normal Ear: Normal Nose: Normal Throat: Normal Cardiovascular: Normal : Normal Auscultation: Bowel Sounds: Normal Tenderness: Normal Skin: Normal Musculoskeletal: Normal Psychiatric: Normal Mood Description: Calm Affect: Normal Speech Pattern: Clear and Appropriate Laboratory and Diagnostics Result Diagrams: 12/08/21 06:05 12/08/21 06:05 Labs: Laboratory WBC 8.2 X10^3/uL (3.6-10.0) 12/08/21 06:05 RBC 4.47 X10^6/uL (3.5-5.4) 12/08/21 06:05 Hgb 13.9 g/dL (12.0-16.0) 12/08/21 06:05 Hct 41.2 % (36.0-47.0) 12/08/21 06:05 MCV 92.0 fL (80.0-100.0) 12/08/21 06:05 MCH 31.1 pg (27.0-34.0) 12/08/21 06:05 MCHC 33.8 g/dL (33.0-35.0) 12/08/21 06:05 RDW 13.9 % (11.6-16.5) 12/08/21 06:05 Plt Count 261 X10^3/uL (150.0-450.0) 12/08/21 06:05 MPV 8.8 fL (7.4-11.0) 12/08/21 06:05 Neut % (Auto) 61.7 % (42.0-75.0) 12/08/21 06:05 Lymph % (Auto) 22.1 % (21.0-51.0) 12/08/21 06:05 [place] % (Auto) 12.1 % (0.0-13.0) 12/08/21 06:05 Eos % (Auto) 2.9 % (0.9-2.9) 12/08/21 06:05 Baso % (Auto) 1.2 % (0.2-1.0) H 12/08/21 06:05 Neut # (Auto) 5.1 x10^3/uL (2.2-4.8) H 12/08/21 06:05 Lymph # (Auto) 1.8 X10^3/uL (1.3-2.9) 12/08/21 06:05 [place] # (Auto) 1.0 x10^3/uL (0.3-0.8) H 12/08/21 06:05 Eos # (Auto) 0.2 x10^3/uL (0.0-0.2) 12/08/21 06:05 Baso # (Auto) 0.1 X10^3/uL (0.0-0.1) 12/08/21 06:05 Absolute Nucleated RBC 0.1 /100WBC 12/08/21 06:05 PT 12.9 SECONDS (11.8-14.3) 12/07/21 15:50 INR Target Range - 12/07/21 15:50 INR 1.02 (0.8-1.3) 12/07/21 15:50 APTT 28.5 SECONDS (22.9-36.5) 12/07/21 15:50 PTT Comment - 12/07/21 15:50 Fibrinogen 368 mg/dL (239-489) 12/07/21 15:50 Sodium 144 mmol/L (136-145) 12/08/21 06:05 Corrected Sodium TNP 12/08/21 06:05 Potassium 4.4 mmol/L (3.5-5.1) 12/08/21 06:05 Chloride 110 mmol/L (98-107) H 12/08/21 06:05 Carbon Dioxide 23.2 mmol/L (21-32) 12/08/21 06:05 BUN 34 mg/dL (7-18) H 12/08/21 06:05 Creatinine 1.49 mg/dL (0.55-1.02) H 12/08/21 06:05 Est GFR (MDRD) Af Amer 43 (>60) L 12/08/21 06:05 Est GFR (MDRD) Non-Af 36 (>60) L 12/08/21 06:05 Glucose 99 mg/dL (65-99) 12/08/21 06:05 Calcium 8.9 mg/dL (8.5-10.1) 12/08/21 06:05 Corrected Calcium 9.5 mg/dL (8.5-10.1) 12/08/21 06:05 Total Bilirubin 0.20 mg/dL (0.2-1.0) 12/08/21 06:05 AST 15 Units/L (15-37) 12/08/21 06:05 ALT 15 Units/L (12-78) 12/08/21 06:05 Alkaline Phosphatase 67 Units/L (46-116) 12/08/21 06:05 Creatine Kinase 51 Units/L (26-192) 12/07/21 15:50 CK-MB (CK-2) 1.0 ng/mL (0-4.0) 12/07/21 15:50 CK/CKMB % Calc 2.0 % (<4) 12/07/21 15:50 Troponin I High Sens 7.1 ng/L (4.0-60.0) 12/07/21 15:50 Total Protein 6.7 g/dL (6.4-8.2) 12/08/21 06:05 Albumin 3.2 g/dL (3.4-5.0) L 12/08/21 06:05 Globulin 3.5 g/dL (2.5-4.5) 12/08/21 06:05 Albumin/Globulin Ratio 0.9 Ratio (1.1-2.1) L 12/08/21 06:05 Triglycerides 117 mg/dL (0-150) 12/08/21 06:05 Cholesterol 225 mg/dL (0-200) H 12/08/21 06:05 LDL Cholesterol, Calc 154 mg/dL (0-100) H 12/08/21 06:05 HDL Cholesterol 48 mg/dL (40-60) 12/08/21 06:05 Cholesterol/HDL Ratio 4.7 (0.0-5.0) 12/08/21 06:05 Specimen Type Clean catch urine 12/07/21 16:19 Urine Color Yellow (YELLOW) 12/07/21 16:19 Urine Appearance Clear (CLEAR) 12/07/21 16:19 Urine pH 5.0 (5.0 - 8.0) 12/07/21 16:19 Ur Specific [place] 1.015 (1.000-1.030) 12/07/21 16:19 Urine Protein Negative (NEGATIVE) 12/07/21 16:19 Urine Glucose (UA) Negative (NEGATIVE) 12/07/21 16:19 Urine Ketones Negative (NEGATIVE) 12/07/21 16:19 Urine Occult Blood 1+ (NEGATIVE) 12/07/21 16:19 Urine Nitrite Negative (NEGATIVE) 12/07/21 16:19 Urine Bilirubin Negative (NEGATIVE) 12/07/21 16:19 Urine Urobilinogen Normal (NORMAL) 12/07/21 16:19 Ur Leukocyte Esterase Negative (NEGATIVE) 12/07/21 16:19 Urine RBC 3-5 /HPF (0-3) A 12/07/21 16:19 Urine WBC 0-2 /HPF (0-5) 12/07/21 16:19 Ur Squamous Epith Cells Few /HPF (NEGATIVE) 12/07/21 16:19 Urine Bacteria Trace /HPF (NEGATIVE) 12/07/21 16:19 Ur Culture Indicated? No/not indicated 12/07/21 16:19 SARS-CoV-2 (PCR) Negative (NEGATIVE) 12/07/21 17:26 Influenza Type A (PCR) Negative (NEGATIVE) 12/07/21 17:26 Influenza Type B (PCR) Negative (NEGATIVE) 12/07/21 17:26 RSV (PCR) Negative (NEGATIVE) 12/07/21 17:26 Radiology Reviewed: Yes Plan (1) CVA (cerebral vascular accident): Status: Acute Plan: MRA brain and CTA in am. Continue Plavix and BP control and also Simvastastin. (2) Brain TIA: Status: Acute Plan: MRI brain this am. Carotid Dopplers today. (3) CKD (chronic kidney disease) stage 3, GFR 30-59 ml/min: Status: Acute Qualifiers: Chronic kidney disease stage 3 subtype: stage 3a (GFR 45-59) Qualified Code(s): N18.31 - Chronic kidney disease, stage 3a (4) HTN (hypertension): Status: Acute Qualifiers: Hypertension type: primary hypertension Qualified Code(s): I10 - Essential (primary) hypertension Plan: Metoprolol ER 100 mg daily. (5) Dyslipidemia: Status: Acute Plan: Continue Simvastatin 20 mg Q HS
[2021-12-08] MEDS: NS 1,000 ML IV 1,000 ML IV SCH (19:08)
[2021-12-08] MEDS: ZOCOR TAB 10 MG PO SCH (21:54)
[2021-12-09] MEDS: NS 1,000 ML IV 1,000 ML IV SCH (01:00)
[2021-12-09 04:54] VITALS: BP 171/76
[2021-12-09 07:29] LABS: CREATININE 1.08 mg/dL (0.55-1.02)
[2021-12-09] MEDS ORDERED: NS 100 ML IV 100 ML ONE (08:37)
[2021-12-09] MEDS ORDERED: TOPROL XL PO SCH (09:00)
[2021-12-09] MEDS ORDERED: TOPROL XL PO ONE (10:07)
[2021-12-09] MEDS: PROTONIX TAB 40 MG PO SCH (10:19)
[2021-12-09] MEDS: SYNTHROID 25 mcg TAB PO SCH (10:20)
[2021-12-09] MEDS: VITAMIN D3 125 mcg (5,000 UNITS) PO SCH (10:20)
[2021-12-09] MEDS: ASPIRIN EC 81 MG PO SCH (10:20)
--- NOTE | 2021-12-09 10:59 | CT ---
HISTORYCVA, atherosclerosis of carotid bifurcationsSTUDYCAROTID CTA with IV contrastCOMPARISONUltrasound 12/08/2021TECHNIQUECTA of the carotid and vertebral arteries in the neck was performed with 3D MIP reconstructions.100 cc Omnipaque 350 IV contrast is administered images are evaluated using NASCET criteria.FINDINGSThere is tortuosity of the common carotid and vertebral artery origins. Normal variant origin of the left vertebral artery from the aortic arch proximal to the left subclavian artery origin. Artifacts limit evaluation of the left vertebral artery origin but there is suggestion of possible moderate to prominent hemodynamically significant stenosis. No other left vertebral artery abnormality is seen. Right vertebral artery is mildly dominant. Tiny focus of calcified plaque is seen near the origin of the right vertebral artery causing no significant stenosis.There is a common origin of the right brachiocephalic artery and left common carotid artery. Calcified plaque in the right carotid bifurcation causes less than 20 percent stenosis. Partially calcified plaque in the left carotid bifurcation causes 10 percent stenosis.IMPRESSIONNormal variant architecture of the aortic arch. Possible hemodynamically significant stenosis in the origin of the left vertebral artery.Only mild stenoses are seen in the carotid bifurcations.Electronically signed by: Fidel Garcia (Dec 09, 2021 10:57:12)
--- NOTE | 2022-01-03 15:20 | PCM.DCPLAN ---
DISCHARGE SUMMARY Admission Date Date of Admission: 12/07/21 Discharge Date Discharge Date: 12/09/21 Admission Diagnoses (1) CVA (cerebral vascular accident): Status: Acute (2) Brain TIA: Status: Acute (3) CKD (chronic kidney disease) stage 3, GFR 30-59 ml/min: Status: Acute (4) HTN (hypertension): Status: Acute (5) Dyslipidemia: Status: Acute Discharge Diagnoses Discharge Diagnosis: 1. 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 Aphasia- Resolved 3. CKD Stage 3 4. Dyslipidemia Discharge Medications Discharge Medications: Home Medication List cholecalciferol (vitamin D3) [Vitamin D3] 125 mcg PO DAILY 12/07/21 [History] coenzyme Q10 [Ultra CoQ10] 100 mg PO DAILY 12/07/21 [History] levothyroxine 25 mcg PO DAILY 12/07/21 [History] simvastatin [Zocor] 10 mg PO QHS 12/07/21 [History] metoprolol succinate [Toprol XL] 100 mg PO DAILY 12/08/21 [History] aspirin 81 mg PO BID #60 cap 12/09/21 [Rx] lisinopril 10 mg PO DAILY #30 tab 12/09/21 [Rx] Prescriptions: aspirin BRENDA SANDERS lisinopril BRENDA SANDERS Hospital Course Vital Signs: Temperature 98 F Pulse Rate [Bilateral Radial] 57 Pulse Rate 60 Respiratory Rate 22 Blood Pressure [Right Arm] 171/76 Blood Pressure [Left Arm] 134/69 Blood Pressure 188/81 O2 Sat by Pulse Oximetry 98 Latest Lab Results: Laboratory Last Values WBC 8.2 X10^3/uL (3.6-10.0) 12/08/21 06:05 RBC 4.47 X10^6/uL (3.5-5.4) 12/08/21 06:05 Hgb 13.9 g/dL (12.0-16.0) 12/08/21 06:05 Hct 41.2 % (36.0-47.0) 12/08/21 06:05 MCV 92.0 fL (80.0-100.0) 12/08/21 06:05 MCH 31.1 pg (27.0-34.0) 12/08/21 06:05 MCHC 33.8 g/dL (33.0-35.0) 12/08/21 06:05 RDW 13.9 % (11.6-16.5) 12/08/21 06:05 Plt Count 261 X10^3/uL (150.0-450.0) 12/08/21 06:05 MPV 8.8 fL (7.4-11.0) 12/08/21 06:05 Neut % (Auto) 61.7 % (42.0-75.0) 12/08/21 06:05 Lymph % (Auto) 22.1 % (21.0-51.0) 12/08/21 06:05 [place] % (Auto) 12.1 % (0.0-13.0) 12/08/21 06:05 Eos % (Auto) 2.9 % (0.9-2.9) 12/08/21 06:05 Baso % (Auto) 1.2 % (0.2-1.0) H 12/08/21 06:05 Neut # (Auto) 5.1 x10^3/uL (2.2-4.8) H 12/08/21 06:05 Lymph # (Auto) 1.8 X10^3/uL (1.3-2.9) 12/08/21 06:05 [place] # (Auto) 1.0 x10^3/uL (0.3-0.8) H 12/08/21 06:05 Eos # (Auto) 0.2 x10^3/uL (0.0-0.2) 12/08/21 06:05 Baso # (Auto) 0.1 X10^3/uL (0.0-0.1) 12/08/21 06:05 Absolute Nucleated RBC 0.1 /100WBC 12/08/21 06:05 PT 12.9 SECONDS (11.8-14.3) 12/07/21 15:50 INR Target Range - 12/07/21 15:50 INR 1.02 (0.8-1.3) 12/07/21 15:50 APTT 28.5 SECONDS (22.9-36.5) 12/07/21 15:50 PTT Comment - 12/07/21 15:50 Fibrinogen 368 mg/dL (239-489) 12/07/21 15:50 Sodium 144 mmol/L (136-145) 12/08/21 06:05 Corrected Sodium TNP 12/08/21 06:05 Potassium 4.4 mmol/L (3.5-5.1) 12/08/21 06:05 Chloride 110 mmol/L (98-107) H 12/08/21 06:05 Carbon Dioxide 23.2 mmol/L (21-32) 12/08/21 06:05 BUN 23 mg/dL (7-18) H 12/09/21 06:53 Creatinine 1.08 mg/dL (0.55-1.02) H 12/09/21 06:53 Est GFR (MDRD) Af Amer 43 (>60) L 12/08/21 06:05 Est GFR (MDRD) Non-Af 36 (>60) L 12/08/21 06:05 Glucose 99 mg/dL (65-99) 12/08/21 06:05 Calcium 8.9 mg/dL (8.5-10.1) 12/08/21 06:05 Corrected Calcium 9.5 mg/dL (8.5-10.1) 12/08/21 06:05 Total Bilirubin 0.20 mg/dL (0.2-1.0) 12/08/21 06:05 AST 15 Units/L (15-37) 12/08/21 06:05 ALT 15 Units/L (12-78) 12/08/21 06:05 Alkaline Phosphatase 67 Units/L (46-116) 12/08/21 06:05 Creatine Kinase 51 Units/L (26-192) 12/07/21 15:50 CK-MB (CK-2) 1.0 ng/mL (0-4.0) 12/07/21 15:50 CK/CKMB % Calc 2.0 % (<4) 12/07/21 15:50 Troponin I High Sens 7.1 ng/L (4.0-60.0) 12/07/21 15:50 Total Protein 6.7 g/dL (6.4-8.2) 12/08/21 06:05 Albumin 3.2 g/dL (3.4-5.0) L 12/08/21 06:05 Globulin 3.5 g/dL (2.5-4.5) 12/08/21 06:05 Albumin/Globulin Ratio 0.9 Ratio (1.1-2.1) L 12/08/21 06:05 Triglycerides 117 mg/dL (0-150) 12/08/21 06:05 Cholesterol 225 mg/dL (0-200) H 12/08/21 06:05 LDL Cholesterol, Calc 154 mg/dL (0-100) H 12/08/21 06:05 HDL Cholesterol 48 mg/dL (40-60) 12/08/21 06:05 Cholesterol/HDL Ratio 4.7 (0.0-5.0) 12/08/21 06:05 Specimen Type Clean catch urine 12/07/21 16:19 Urine Color Yellow (YELLOW) 12/07/21 16:19 Urine Appearance Clear (CLEAR) 12/07/21 16:19 Urine pH 5.0 (5.0 - 8.0) 12/07/21 16:19 Ur Specific [place] 1.015 (1.000-1.030) 12/07/21 16:19 Urine Protein Negative (NEGATIVE) 12/07/21 16:19 Urine Glucose (UA) Negative (NEGATIVE) 12/07/21 16:19 Urine Ketones Negative (NEGATIVE) 12/07/21 16:19 Urine Occult Blood 1+ (NEGATIVE) 12/07/21 16:19 Urine Nitrite Negative (NEGATIVE) 12/07/21 16:19 Urine Bilirubin Negative (NEGATIVE) 12/07/21 16:19 Urine Urobilinogen Normal (NORMAL) 12/07/21 16:19 Ur Leukocyte Esterase Negative (NEGATIVE) 12/07/21 16:19 Urine RBC 3-5 /HPF (0-3) A 12/07/21 16:19 Urine WBC 0-2 /HPF (0-5) 12/07/21 16:19 Ur Squamous Epith Cells Few /HPF (NEGATIVE) 12/07/21 16:19 Urine Bacteria Trace /HPF (NEGATIVE) 12/07/21 16:19 Ur Culture Indicated? No/not indicated 12/07/21 16:19 SARS-CoV-2 (PCR) Negative (NEGATIVE) 12/07/21 17:26 Influenza Type A (PCR) Negative (NEGATIVE) 12/07/21 17:26 Influenza Type B (PCR) Negative (NEGATIVE) 12/07/21 17:26 RSV (PCR) Negative (NEGATIVE) 12/07/21 17:26 Hospital Course: Following admission the patients aphasia resolved by the next morning. Her initial CT brain did not show any acute changes. The MRI the next day showed an acute to subacute lacunar infarct in the left frontal lobe and posterior left temporal lobe. Moderate chronic small vessel disease and chronic bilateral basal gaglia, thalami and pontine lacunar infarcts. Carotid dopplers showed bulky calcified plaque at the bilateral carotid bifurcations but without evidence of significant stenosis by velocity. Next it shows Normal antegrade flow in vertebral arteries. The MRA brain without contrast showed moderate to severe narrowing in the left A2 segment, Mild narrowing of distal left M2 segment and the M1 segment appear normal. There was no major branch vessel occlusion or intracranial aneurysm seen. On the the patient had a CTA of the neck which showed only mild stenosis in the carotid bifercations. The patients lipid panel is not bad but her total cholesterol is 225. She is symptom free now and has no new complaints and is ready to go home. I will see her in my office in 1-2 weeks for hospital follow-up and will refer her at that time to Neurologist Dr. Alvaro Velasquez in [place], [place] and now will increase her ASA 81 mg to bid. Instructions Instructions: Stroke Prevention Warning Signs of a Stroke Nonspecific Chest Pain, Adult, [id number] Stroke Prevention, [id number] Chest Wall Pain, [id number] Hypertension, Adult, [id number] Managing Your Hypertension Forms: Excuse From Work or School Precautions for COVID[address] [place] [address] Heart Patient Portal Social Distancing
== END 2021-12-09 10:45 | disposition home or self-care (01) ==
LOC: MED/SURG 15:33 → ER 15:33 → MED/SURG 19:50
PROVIDERS: ADMIT Family Medicine; ATTEND Family Medicine
DX: R47.01 Aphasia; K21.9 Gastro-esophageal reflux disease without esophagitis; Z20.822 Contact with and (suspected) exposure to COVID-19; E78.2 Mixed hyperlipidemia; I10 Essential (primary) hypertension; G45.8 Other transient cerebral ischemic attacks and related syndromes; I25.10 Atherosclerotic heart disease of native coronary artery without angina pectoris; N18.31 Chronic kidney disease, stage 3a; I63.89 Other cerebral infarction

== ENCOUNTER 2024-05-26 13:56 | Inpatient (IN) ==
[2024-05-26 15:43] LABS: BASOPHILS # (AUTO) 0.1 X10^3/uL (0.0-0.1); BASOPHILS % (AUTO) 0.6 % (0.2-1.0); EOSINOPHILS # (AUTO) 0.2 x10^3/uL (0.0-0.2); EOSINOPHILS % (AUTO) 1.4 % (0.9-2.9); HEMATOCRIT 40.7 % (36.0-47.0); HEMOGLOBIN 13.5 g/dL (12.0-16.0); LYMPHOCYTES # (AUTO) 1.8 X10^3/uL (1.3-2.9); LYMPHOCYTES % (AUTO) 16.6 % (21.0-51.0); MEAN CORPUSCULAR HEMOGLOBIN 31.4 pg (27.0-34.0); MEAN CORPUSCULAR HGB CONC 33.1 g/dL (33.0-35.0); MEAN CORPUSCULAR VOLUME 94.8 fL (80.0-100.0); MEAN PLATELET VOLUME 8.9 fL (7.4-11.0); MONOCYTES # (AUTO) 1.2 x10^3/uL (0.3-0.8); MONOCYTES % (AUTO) 10.7 % (0.0-13.0); NEUTROPHILS # (AUTO) 7.7 x10^3/uL (2.2-4.8); NEUTROPHILS % (AUTO) 70.7 % (42.0-75.0); PLATELET COUNT 251 X10^3/uL (150.0-450.0); RED BLOOD COUNT 4.29 X10^6/uL (3.5-5.4); RED CELL DISTRIBUTION WIDTH 13.6 % (11.6-16.5); WHITE BLOOD COUNT 10.8 X10^3/uL (3.6-10.0)
--- NOTE | 2024-05-26 15:51 | EKG ---
Test Reason : Generalized weakness, mild confusion Blood Pressure : */* mmHG Vent. Rate : 62 BPM Atrial Rate : 62 BPM P-R Int : 148 ms QRS Dur : 78 ms QT Int : 426 ms P-R-T Axes : 41 -18 22 degrees QTc Int : 432 ms Normal sinus rhythm Minimal voltage criteria for LVH, may be normal variant ( R in aVL ) Borderline ECG No previous ECGs available Confirmed by Seymour Long MD ([id number]) on 05/27/2024 7:39:30 AM Referred By: Confirmed By: Seymour Long MD
[2024-05-26 16:06] LABS: ALBUMIN 2.9 g/dL (3.4-5.0); CALCIUM 9.4 mg/dL (8.5-10.1); CARBON DIOXIDE 26.9 mmol/L (21-32); COR CA(FOR HYPOALB) 10.3 mg/dL (8.5-10.1); CREATININE 1.45 mg/dL (0.55-1.02); MAGNESIUM 1.9 mg/dL (2.0-2.9); POTASSIUM 4.2 mmol/L (3.5-5.1); TOTAL PROTEIN 6.9 g/dL (6.4-8.2)
[2024-05-26] MEDS ORDERED: NS 1/2 1,000 ML IV 1,000 ML IV ONE (18:09)
[2024-05-26] MEDS: NS 1/2 1,000 ML IV 1,000 ML IV SCH (18:22)
[2024-05-26] MEDS: PriLOSEC PO SCH (20:14)
[2024-05-26] MEDS: ELIQUIS PO SCH (20:15)
[2024-05-26] MEDS: LOPRESSOR TAB 50 MG PO SCH (20:15)
[2024-05-26] MEDS: XALATAN EACHEYE SCH (21:21)
[2024-05-26] MEDS: TIMOPTIC 0.5% EYE DROPS EACHEYE SCH (21:21)
--- NOTE | 2024-05-26 21:50 | DR.H&P ---
H&P History & Physical for Day of: H&P Date: 05/26/24 Chief Complaint Chief Complaint: Increasing weakness, falling, confusion History of Present Illness History of Present Illness: This is a pleasant 83-year-old white female well- known to me. She is brought in this morning by her 2 daughters who tell me that she is having increasing weakness, increased numbers of falls and worsening confusion. The confusion they state has been getting worse at night. They also state that her blood pressure is becoming elevated and getting up to the 180s to 200s on top and this is generally at nighttime. She has been taking metoprolol succinate 50 mg twice daily. They took her to the [facility] emergency department over this past weekend where she was found to have profoundly elevated blood pressure with systolic numbers in the 200s. The emergency room physician did a workup but did not find any reason for her confusion. I suspect that the patient may have been having hypertensive urgency that could have caused her confusion given her blood pressure was so highly elevated. 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 She does have a history of CVA in the past as well as cardiovascular disease. I can tell here in the in the office earlier today that she is not at her normal baseline mental status. She seems slower than normal to answer questions and mildly groggy. I do not see any significant ptosis of the eyelids, drooping of the corner of the mouth and her tongue is not deviated to 1 side or the other. She has good upper motor strength with her left leg does seem mildly weaker compared to her right. Her daughter is also stated that she has not been eating and drinking very much and they are concerned that she may be dehydrated. Given her history of multiple medical problems and her change in baseline I think it is a good idea to go ahead and direct admit her and do a workup to see if we can find any etiologies of her current and ongoing symptoms of increasing weakness, anorexia, increased falling and confusion which is worse at nighttime now. We also need to monitor her blood pressure and get it under control as she is having intermittent spikes of hypertension at varying times of the day and night. I will plan on doing an MRI tomorrow morning. I do see that on her CMP that her BUN and creatinine are elevated and her estimated GFR is in the 30s which is lower than her normal baseline in the 40s indicating that she does have some dehydration. We will give her slow IV hydration with one half normal saline overnight at 75 cc/h. Repeat BMP and chest x-ray in the morning to make sure that she is not getting fluid overloaded. Past Medical History Past Medical History: Coronary Artery Disease, Dyslipidemia, GERD and ID Additional Medical History: psuedoaneurysm Past Surgical History Surgical History: Appendectomy, Cholecystectomy and Ortho Surgery Family History Family Medical History: Diabetes Mellitus and Hypertension Social History Does any household member use tobacco: No Alcohol Use: None Drug Use: None Medications Home Medications: Home Medications Medication Instructions Recorded Confirmed Type cholecalciferol (vitamin D3) 125 125 mcg PO DAILY 12/07/21 05/26/24 History mcg (5,000 unit) tablet (Vitamin D3) coenzyme Q10 75 mg capsule (Ultra 100 mg PO DAILY 12/07/21 05/26/24 History CoQ10) latanoprost 0.005 % eye drops 1 drp ophthalmic (eye) HS 05/09/23 05/26/24 History ezetimibe 10 mg tablet (Zetia) 10 mg PO QDAY 07/18/23 05/26/24 History solifenacin 5 mg tablet 5 mg PO QDAY 01/18/24 05/26/24 History timolol maleate 0.5 % eye drops 1 drp ophthalmic (eye) BID 01/18/24 05/26/24 History metoprolol succinate 100 mg 50 mg PO BID for blood pressure 05/26/24 05/26/24 History tablet,extended release 24 hr Allergies Allergies Allergy/AdvReac Type Severity Reaction Status Date / Time No Known Drug Allergies Allergy Unknown Verified 05/21/23 09:38 Labs 05/26/24 15:30 05/26/24 15:30 Labs: Laboratory WBC 10.8 X10^3/uL (3.6-10.0) H 05/26/24 15:30 RBC 4.29 X10^6/uL (3.5-5.4) 05/26/24 15:30 Hgb 13.5 g/dL (12.0-16.0) 05/26/24 15:30 Hct 40.7 % (36.0-47.0) 05/26/24 15:30 MCV 94.8 fL (80.0-100.0) 05/26/24 15:30 MCH 31.4 pg (27.0-34.0) 05/26/24 15:30 MCHC 33.1 g/dL (33.0-35.0) 05/26/24 15:30 RDW 13.6 % (11.6-16.5) 05/26/24 15:30 Plt Count 251 X10^3/uL (150.0-450.0) 05/26/24 15:30 MPV 8.9 fL (7.4-11.0) 05/26/24 15:30 Neut % (Auto) 70.7 % (42.0-75.0) 05/26/24 15:30 Lymph % (Auto) 16.6 % (21.0-51.0) L 05/26/24 15:30 [place] % (Auto) 10.7 % (0.0-13.0) 05/26/24 15:30 Eos % (Auto) 1.4 % (0.9-2.9) 05/26/24 15:30 Baso % (Auto) 0.6 % (0.2-1.0) 05/26/24 15:30 Neut # (Auto) 7.7 x10^3/uL (2.2-4.8) H 05/26/24 15:30 Lymph # (Auto) 1.8 X10^3/uL (1.3-2.9) 05/26/24 15:30 [place] # (Auto) 1.2 x10^3/uL (0.3-0.8) H 05/26/24 15:30 Eos # (Auto) 0.2 x10^3/uL (0.0-0.2) 05/26/24 15:30 Baso # (Auto) 0.1 X10^3/uL (0.0-0.1) 05/26/24 15:30 Absolute Nucleated RBC 0.0 /100WBC 05/26/24 15:30 Sodium 142 mmol/L (136-145) 05/26/24 15:30 Corrected Sodium 143 mmol/L (136-145) 05/26/24 15:30 Potassium 4.2 mmol/L (3.5-5.1) 05/26/24 15:30 Chloride 106 mmol/L (98-107) 05/26/24 15:30 Carbon Dioxide 26.9 mmol/L (21-32) 05/26/24 15:30 BUN 23 mg/dL (7-18) H 05/26/24 15:30 Creatinine 1.45 mg/dL (0.55-1.02) H 05/26/24 15:30 Est GFR (MDRD) Af Amer 44 (>60) L 05/26/24 15:30 Est GFR (MDRD) Non-Af 37 (>60) L 05/26/24 15:30 Glucose 124 mg/dL (65-99) H 05/26/24 15:30 Calcium 9.4 mg/dL (8.5-10.1) 05/26/24 15:30 Corrected Calcium 10.3 mg/dL (8.5-10.1) H 05/26/24 15:30 Magnesium 1.9 mg/dL (2.0-2.9) L 05/26/24 15:30 Total Bilirubin 0.10 mg/dL (0.2-1.0) L 05/26/24 15:30 AST 13 Units/L (15-37) L 05/26/24 15:30 ALT 13 Units/L (12-78) 05/26/24 15:30 Alkaline Phosphatase 63 Units/L (46-116) 05/26/24 15:30 Troponin I High Sens 18.5 ng/L (4.0-60.0) 05/26/24 15:30 B-Natriuretic Peptide 382 pg/mL (0-79) H 05/26/24 15:30 Total Protein 6.9 g/dL (6.4-8.2) 05/26/24 15:30 Albumin 2.9 g/dL (3.4-5.0) L 05/26/24 15:30 Globulin 4.0 g/dL (2.5-4.5) 05/26/24 15:30 Albumin/Globulin Ratio 0.7 Ratio (1.1-2.1) L 05/26/24 15:30 Review of Systems Constitutional: Weakness and Malaise Eyes: Vision Change (Intermittent blurry vision) ENT: No Symptoms Reported Respiratory: Cough, Shortness of Breath and SOB with Excertion; denies Dry, Hemoptysis, Pleuritic Pain, Sputum or Wheezing Cardiovascular: Orthopnea, Edema and Light Headedness; denies Chest Pain, Palpitations or Paroxysmal Noc. Dyspnea Gastrointestinal: denies Nausea, Vomiting, Abdominal Pain, Diarrhea, Constipation, Melena or Hematochezia Genitourinary: No Symptoms Reported Musculoskeletal: Back Pain and Leg Pain Skin: Bruising and Ecchymosis Neurological: See HPI, Weakness, Incoordination and Confusion; denies Numbness, Change in Speech or Seizures Physical Exam Vital Signs: Vital Signs Temperature 98.1 F Temperature 98.5 F Pulse Rate [Brachial] 66 Pulse Rate [Brachial] 62 Respiratory Rate 18 Respiratory Rate 18 Blood Pressure [Right Arm] 158/72 Blood Pressure [Right Arm] 164/75 O2 Sat by Pulse Oximetry 93 O2 Sat by Pulse Oximetry 97 Oriented: Normal, Time, Person and Place Eyes: Normal Ear: Normal Nose: Normal Throat: Normal Respiratory: Clear Throughout Cardiovascular: Normal Auscultation: Bowel Sounds: Normal Palpation: Normal Tenderness: Normal Skin: Decreased Turgur Musculoskeletal: Left and Hip Psychiatric: Anxiety Mood Description: Depressed, Flat, Sad and Anxious Affect: Anxious, Depressed, Flat, Quiet and Normal; negative Angry, Hysterical or Violent Speech Pattern: Clear and Appropriate Assessment/Plan (1) Difficulty in walking: Status: Acute Plan: Check routine labs, final MRI tomorrow morning and IV hydration. (2) Nocturnal confusional state: Status: Acute Plan: Discontinue Wellbutrin. The patient's change in mental status seems to correlate with the recent start of Wellbutrin. We are holding her Wellbutrin at this time. (3) Falling episodes: Status: Acute (4) Stage 3b chronic kidney disease: Status: None Plan: Renal dosing of medications. Follow daily BUN/creatinine and estimated GFR levels. (5) Primary hypertension: Status: None Plan: The patient is having uncontrolled spikes of elevated blood pressure. We are changing her oral metoprolol succinate 50 mg twice daily to metoprolol to tartrate 50 mg twice daily. Adjust medication as needed. (6) Generalized weakness: Status: Acute Plan: Routine medical workup. This will include CBC, CMP, urinalysis, chest x-ray. We will plan on doing MRI of her brain tomorrow morning because of the recent change of mental status. She does have a history of CVA and is now showing signs of left upper leg weakness. (7) Anorexia: Status: Acute Plan: Monitor for improvement of appetite after stopping Wellbutrin that the patient was started on last week. (8) Dehydration: Status: Acute Plan: IV hydration with one half normal saline. (9) Mental status alteration: Qualifiers: Altered mental status type: somnolence Qualified Code(s): R40.0 - Somnolence Status: Acute Plan: I will plan on MRI of the patient's brain tomorrow morning. We will do it with contrast if her renal function allows it. Review H&P Reviewed: Yes Patient was examined?: Yes
[2024-05-27 03:03] LABS: BILIRUBIN,URINE NEGATIVE (NEGATIVE); BLOOD/HEMOGLOBIN,URINE 1+ (NEGATIVE); GLUCOSE, URINE NEGATIVE (NEGATIVE); KETONES,URINE NEGATIVE (NEGATIVE); LEUKOCYTE ESTERASE ,URINE NEGATIVE (NEGATIVE); NITRITES,URINE NEGATIVE (NEGATIVE); PROTEIN,URINE NEGATIVE (NEGATIVE); UROBILINOGEN,URINE NORMAL (NORMAL)
[2024-05-27 03:08] LABS: APPEARANCE,URINE CLEAR (CLEAR); BACTERIA,URINE NEGATIVE /HPF (NEGATIVE); COLOR,URINE PALE YELLOW (YELLOW); RBC,URINE 0-2 /HPF (0-3); SQUAMOUS EPITHELIAL CELL,UR RARE /HPF (NEGATIVE)
[2024-05-27] MEDS ORDERED: NS 1/2 1,000 ML IV 1,000 ML IV ONE ×2 (05:50→18:03)
--- NOTE | 2024-05-27 05:50 | RAD ---
EXAM:CHEST, 1 VIEWHISTORY:GENERALIZED WEAKNESS;COMPARISON:05/12/2024FINDINGS:T he cardiomediastinal silhouette is stable. Similar elevation of the right hemidiaphragm.Chronic appearing interstitial changes in the lungs. No acute airspace disease. No pneumothorax or effusion.No acute osseous abnormality.IMPRESSION:No acute cardiopulmonary disease.THIS IS AN ELECTRONICALLY VERIFIED FINAL REPORT05/27/2024 5:45 AM - Electronically signed by Kamaljit Escalante MD
[2024-05-27 06:13] LABS: BASOPHILS # (AUTO) 0.1 X10^3/uL (0.0-0.1); HEMATOCRIT 38.5 % (36.0-47.0); WHITE BLOOD COUNT 11.3 X10^3/uL (3.6-10.0)
[2024-05-27 06:24] LABS: ALANINE AMINOTRANSFERASE 15 Units/L (12-78); ALBUMIN 2.6 g/dL (3.4-5.0); ALKALINE PHOSPHATASE 50 Units/L (46-116); ASPARTATE AMINO TRANSFERASE 16 Units/L (15-37); BLOOD UREA NITROGEN 21 mg/dL (7-18); CALCIUM 8.9 mg/dL (8.5-10.1); CARBON DIOXIDE 27.1 mmol/L (21-32); CHLORIDE 108 mmol/L (98-107); CREATININE 1.28 mg/dL (0.55-1.02); GLUCOSE 100 mg/dL (65-99); POTASSIUM 4.2 mmol/L (3.5-5.1); SODIUM 141 mmol/L (136-145); TOTAL PROTEIN 6.4 g/dL (6.4-8.2); eGFR NON BLACK RACES 42 (>60)
[2024-05-27 06:28] LABS: BASOPHILS % (AUTO) 1.3 % (0.2-1.0); EOSINOPHILS # (AUTO) 0.2 x10^3/uL (0.0-0.2); EOSINOPHILS % (AUTO) 1.4 % (0.9-2.9); HEMOGLOBIN 12.7 g/dL (12.0-16.0); LYMPHOCYTES # (AUTO) 1.8 X10^3/uL (1.3-2.9); LYMPHOCYTES % (AUTO) 16.2 % (21.0-51.0); MEAN CORPUSCULAR HEMOGLOBIN 31.3 pg (27.0-34.0); MEAN CORPUSCULAR VOLUME 94.7 fL (80.0-100.0); MEAN PLATELET VOLUME 9.7 fL (7.4-11.0); MONOCYTES # (AUTO) 1.2 x10^3/uL (0.3-0.8); MONOCYTES % (AUTO) 10.5 % (0.0-13.0); NEUTROPHILS % (AUTO) 70.6 % (42.0-75.0); PLATELET COUNT 244 X10^3/uL (150.0-450.0); RED CELL DISTRIBUTION WIDTH 13.7 % (11.6-16.5)
[2024-05-27 06:29] LABS: RED BLOOD COUNT 4.06 X10^6/uL (3.5-5.4)
[2024-05-27] MEDS: ZETIA TAB 10 MG PO SCH (09:14)
[2024-05-27] MEDS: ALTACE 2.5 MG CAP PO SCH (10:08)
[2024-05-27] MEDS: BENADRYL INJ 50 MG VIAL IV ONE (10:32)
[2024-05-27] MEDS ORDERED: MULTIHANCE INJ VIAL ONE (11:22)
--- NOTE | 2024-05-27 12:31 | MRI ---
EXAM:BRAIN W&W/O CONHISTORY:CONFUSION/ HX OF MINI STROKES.COMPARISON:Head CT dated 05/25/2024.TECHNIQUE:Multiplanar multi-sequence MRI of the brain was obtained. Sagittal T1, axial T1, axial T2, axial flair images, coronal T1 postcontrast, axial T1 postcontrast images were obtained.FINDINGS:The midline structures are grossly intact. The posterior fossa is unremarkable. There is [id number] sulcal and cisternal prominence, as well as, atherosclerotic change in the proximal intracranial carotid and vertebral arteries, which is not out of proportion to the patient's chronological age. There are scattered and confluent areas of increased T2/FLAIR signal within the periventricular, deep and subcortical white matter regions bilaterally which may reflect sequelae of microangiopathy in a patient of this age. Old pontine and right occipital lobe infarcts are noted. Normal harp-white differentiation is maintained. No evidence for intraparenchymal hemorrhage or mass can be identified. No extra-axial fluid collections or subarachnoid hematoma can be seen. Evaluation of the diffusion weighted images demonstrates no evidence for acute ischemic change. The cerebral pontine angle is normal in its contour without evidence for mass. The ventricular system is symmetric and nondilated.Postcontrast enhancement demonstrates no evidence for an enhancing lesion such as mass or vascular malformation.IMPRESSION:1. Changes of advancing chronological age without acute intracranial abnormality.2. Old pontine and right occipital lobe infarcts.3. Nonspecific white matter changes.THIS IS AN ELECTRONICALLY VERIFIED FINAL REPORT05/27/2024 12:20 PM - Electronically signed by Artemio Garces MD
[2024-05-28 06:06] LABS: BASOPHILS # (AUTO) 0.1 X10^3/uL (0.0-0.1); BASOPHILS % (AUTO) 0.8 % (0.2-1.0); EOSINOPHILS # (AUTO) 0.2 x10^3/uL (0.0-0.2); EOSINOPHILS % (AUTO) 1.8 % (0.9-2.9); HEMATOCRIT 39.8 % (36.0-47.0); HEMOGLOBIN 13.1 g/dL (12.0-16.0); LYMPHOCYTES # (AUTO) 1.6 X10^3/uL (1.3-2.9); LYMPHOCYTES % (AUTO) 12.4 % (21.0-51.0); MEAN CORPUSCULAR HEMOGLOBIN 31.3 pg (27.0-34.0); MEAN CORPUSCULAR VOLUME 94.9 fL (80.0-100.0); MEAN PLATELET VOLUME 9.3 fL (7.4-11.0); MONOCYTES # (AUTO) 1.4 x10^3/uL (0.3-0.8); MONOCYTES % (AUTO) 11.2 % (0.0-13.0); NEUTROPHILS # (AUTO) 9.3 x10^3/uL (2.2-4.8); NEUTROPHILS % (AUTO) 73.8 % (42.0-75.0); PLATELET COUNT 257 X10^3/uL (150.0-450.0); RED CELL DISTRIBUTION WIDTH 13.5 % (11.6-16.5); WHITE BLOOD COUNT 12.6 X10^3/uL (3.6-10.0)
[2024-05-28 06:29] LABS: ALANINE AMINOTRANSFERASE 14 Units/L (12-78); ALBUMIN 2.8 g/dL (3.4-5.0); ALKALINE PHOSPHATASE 64 Units/L (46-116); ASPARTATE AMINO TRANSFERASE 16 Units/L (15-37); BLOOD UREA NITROGEN 20 mg/dL (7-18); CALCIUM 9.6 mg/dL (8.5-10.1); CHLORIDE 106 mmol/L (98-107); COR CA(FOR HYPOALB) 10.6 mg/dL (8.5-10.1); CREATININE 1.33 mg/dL (0.55-1.02); GLUCOSE 105 mg/dL (65-99); POTASSIUM 3.8 mmol/L (3.5-5.1); SODIUM 141 mmol/L (136-145); TOTAL PROTEIN 6.7 g/dL (6.4-8.2); eGFR NON BLACK RACES 41 (>60)
[2024-05-28] MEDS: MAG-OX TAB PO SCH (08:47)
[2024-05-28] MEDS: K-DUR TAB 20 MEQ PO SCH (08:48)
[2024-05-28] MEDS ORDERED: CONSULT PHARMACY - POTASSIUM & MAGNESIUM XX SCH (09:00)
[2024-05-28] MEDS: NORCO 5/325 MG TAB PO PRN (12:12)
--- NOTE | 2024-05-28 13:53 | RAD ---
EXAMINATION: CHEST, 1 VIEW HISTORY: CONGESTION; . COMPARISON STUDY: Chest x-ray 05/26/2024 TECHNIQUE: Single frontal view of the chest FINDINGS: Lungs are expanded. Borderline cardiac silhouette enlargement. Normal pulmonary vascular pattern. CP angles are sharp. Bones are intact. IMPRESSION: Borderline cardiac silhouette enlargement. No acute pulmonary infiltrate seen. THIS IS AN ELECTRONICALLY VERIFIED FINAL REPORT 05/28/2024 1:50 PM - Electronically signed by Ashley Gallardo MD
[2024-05-28] MEDS ORDERED: NS 1/2 1,000 ML IV 1,000 ML IV ONE (15:40)
[2024-05-28 17:22] LABS: BILIRUBIN,URINE NEGATIVE (NEGATIVE); BLOOD/HEMOGLOBIN,URINE NEGATIVE (NEGATIVE); GLUCOSE, URINE NEGATIVE (NEGATIVE); KETONES,URINE NEGATIVE (NEGATIVE); LEUKOCYTE ESTERASE ,URINE NEGATIVE (NEGATIVE); NITRITES,URINE NEGATIVE (NEGATIVE); PROTEIN,URINE NEGATIVE (NEGATIVE); UROBILINOGEN,URINE NORMAL (NORMAL)
[2024-05-28 17:27] LABS: APPEARANCE,URINE CLEAR (CLEAR); COLOR,URINE YELLOW (YELLOW)
[2024-05-28] MEDS ORDERED: NS IV SCH (19:49)
[2024-05-28] MEDS ORDERED: AVYCAZ IV SCH (19:49)
[2024-05-28] MEDS ORDERED: ZOFRAN TAB 4 MG PO PRN (19:53)
--- NOTE | 2024-05-28 20:25 | PCM.PROG ---
Progress Note Progress Note for Day of Date of Exam: 05/27/24 Subjective Subjective: The patient is resting this morning. She states that she is not feeling any better. The nurses tell me she became confused last night, but according to her daughters, she has been doing this even at home. This started last week and has continued since she was admitted to the hospital yesterday. I see that the patient's white blood cell count has gone up to 11,900 from 10,800. The patient remains weak, and she seems slower mentally than she did when I saw her last week. Her daughters are also in agreement with this. They also report that she has been falling more and more unstable, especially when walking. 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 She has normal gradewhite matter differentiation. There was no evidence of intraparenchymal hemorrhage or mass. Post-contrast images of the MRI demonstrated no evidence of enhancing lesions such as mass or vascular malformations. It did show some nonspecific white matter changes. The patient's hydration status has improved as her creatinine levels have gone f rom 1.45-1.28. There was some concern that she may have been having changes in her mental status from the Wellbutrin that I started her on last week. However given the number of days it has been since she started it should be out of her system by now. He has no electrolyte abnormalities and there has been no evidence for infection found at this time. Urinalysis shows that it grew out contamination. There has been no fever but she does have a increasing white blood cell count and increase in neutrophil count. It is possible she could have some underlying infection somewhere. Past Medical Family Social History Allergies: Allergies No Known Drug Allergies Allergy (Unknown, Verified 05/21/23 09:38) Onset Date: 10/18/2021 Review of Systems ROS: No change since H&P Vital Signs and I&O's Vital Signs: Vital Signs Temperature 98.2 F Temperature 97.8 F Pulse Rate [Brachial] 74 Pulse Rate [Brachial] 67 Respiratory Rate 18 Respiratory Rate 21 Respiratory Rate 18 Respiratory Rate 18 Respiratory Rate 20 Blood Pressure [Right Arm] 176/87 Blood Pressure [Right Arm] 112/58 O2 Sat by Pulse Oximetry 92 O2 Sat by Pulse Oximetry 94 Intake and Output: Intake & Output 05/26/24 05/27/24 05/28/24 05/29/24 11:59 11:59 11:59 11:59 Intake Total 936 / 936 2939 / 2939 1584 / 1584 Balance 936 / 936 2939 / 2939 1584 / 1584 Physical Exam Oriented: Normal, Time, Person and Place Eyes: Normal Ear: Normal Nose: Normal Throat: Normal Respiratory: Normal Cardiovascular: Normal Auscultation: Bowel Sounds: Normal Tenderness: Normal Skin: Decreased Turgur Musculoskeletal: Left and Hip Psychiatric: Anxiety and Depression; negative Normal or Agitation Mood Description: Apathetic, Depressed, Flat, Sad, Withdrawn, Anxious and Labil e; negative Angry, Fearful or Hostile Affect: Anxious, Depressed, Flat, Quiet and Normal; negative Angry, Hysterical or Violent Speech Pattern: Clear and Appropriate Laboratory and Diagnostics 05/28/24 05:48 05/28/24 05:48 Labs: 05/27/24 02:53 Urine,Clean Catch Urine Culture - Final Laboratory WBC 12.6 X10^3/uL (3.6-10.0) H 05/28/24 05:48 RBC 4.20 X10^6/uL (3.5-5.4) 05/28/24 05:48 Hgb 13.1 g/dL (12.0-16.0) 05/28/24 05:48 Hct 39.8 % (36.0-47.0) 05/28/24 05:48 MCV 94.9 fL (80.0-100.0) 05/28/24 05:48 MCH 31.3 pg (27.0-34.0) 05/28/24 05:48 MCHC 33.0 g/dL (33.0-35.0) 05/28/24 05:48 RDW 13.5 % (11.6-16.5) 05/28/24 05:48 Plt Count 257 X10^3/uL (150.0-450.0) 05/28/24 05:48 MPV 9.3 fL (7.4-11.0) 05/28/24 05:48 Neut % (Auto) 73.8 % (42.0-75.0) 05/28/24 05:48 Lymph % (Auto) 12.4 % (21.0-51.0) L 05/28/24 05:48 [place] % (Auto) 11.2 % (0.0-13.0) 05/28/24 05:48 Eos % (Auto) 1.8 % (0.9-2.9) 05/28/24 05:48 Baso % (Auto) 0.8 % (0.2-1.0) 05/28/24 05:48 Neut # (Auto) 9.3 x10^3/uL (2.2-4.8) H 05/28/24 05:48 Lymph # (Auto) 1.6 X10^3/uL (1.3-2.9) 05/28/24 05:48 [place] # (Auto) 1.4 x10^3/uL (0.3-0.8) H 05/28/24 05:48 Eos # (Auto) 0.2 x10^3/uL (0.0-0.2) 05/28/24 05:48 Baso # (Auto) 0.1 X10^3/uL (0.0-0.1) 05/28/24 05:48 Absolute Nucleated RBC 0.0 /100WBC 05/28/24 05:48 Sodium 141 mmol/L (136-145) 05/28/24 05:48 Corrected Sodium TNP 05/28/24 05:48 Potassium 3.8 mmol/L (3.5-5.1) 05/28/24 05:48 Chloride 106 mmol/L (98-107) 05/28/24 05:48 Carbon Dioxide 26.0 mmol/L (21-32) 05/28/24 05:48 BUN 20 mg/dL (7-18) H 05/28/24 05:48 Creatinine 1.33 mg/dL (0.55-1.02) H 05/28/24 05:48 Est GFR (MDRD) Af Amer 49 (>60) L 05/28/24 05:48 Est GFR (MDRD) Non-Af 41 (>60) L 05/28/24 05:48 Glucose 105 mg/dL (65-99) H 05/28/24 05:48 Calcium 9.6 mg/dL (8.5-10.1) 05/28/24 05:48 Corrected Calcium 10.6 mg/dL (8.5-10.1) H 05/28/24 05:48 Magnesium 1.9 mg/dL (2.0-2.9) L 05/26/24 15:30 Total Bilirubin 0.30 mg/dL (0.2-1.0) 05/28/24 05:48 AST 16 Units/L (15-37) 05/28/24 05:48 ALT 14 Units/L (12-78) 05/28/24 05:48 Alkaline Phosphatase 64 Units/L (46-116) 05/28/24 05:48 Troponin I High Sens 18.5 ng/L (4.0-60.0) 05/26/24 15:30 B-Natriuretic Peptide 334 pg/mL (0-79) H 05/28/24 05:48 Total Protein 6.7 g/dL (6.4-8.2) 05/28/24 05:48 Albumin 2.8 g/dL (3.4-5.0) L 05/28/24 05:48 Globulin 3.9 g/dL (2.5-4.5) 05/28/24 05:48 Albumin/Globulin Ratio 0.7 Ratio (1.1-2.1) L 05/28/24 05:48 Specimen Type Catherized urine 05/28/24 17:15 Urine Color Yellow (YELLOW) 05/28/24 17:15 Urine Appearance Clear (CLEAR) 05/28/24 17:15 Urine pH 6.0 (5.0 - 8.0) 05/28/24 17:15 Ur Specific [place] 1.020 (1.000-1.030) 05/28/24 17:15 Urine Protein Negative (NEGATIVE) 05/28/24 17:15 Urine Glucose (UA) Negative (NEGATIVE) 05/28/24 17:15 Urine Ketones Negative (NEGATIVE) 05/28/24 17:15 Urine Blood Negative (NEGATIVE) 05/28/24 17:15 Urine Nitrite Negative (NEGATIVE) 05/28/24 17:15 Urine Bilirubin Negative (NEGATIVE) 05/28/24 17:15 Urine Urobilinogen Normal (NORMAL) 05/28/24 17:15 Ur Leukocyte Esterase Negative (NEGATIVE) 05/28/24 17:15 Urine RBC 0-2 /HPF (0-3) 05/27/24 02:53 Urine WBC 0-2 /HPF (0-5) 05/27/24 02:53 Ur Squamous Epith Cells Rare /HPF (NEGATIVE) 05/27/24 02:53 Urine Bacteria Negative /HPF (NEGATIVE) 05/27/24 02:53 Ur Culture Indicated? Yes/culture set up 05/27/24 02:53 Radiology Reviewed: Yes Plan (1) Difficulty in walking: Status: Acute Narrative Support Text: MRI of brain shows no acute strokes but chronic white matter changes. No acute process and no masses. Plan: We will plan on having physical therapy start working with the patient tomorrow. We will let her rest in the meantime. 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 (3) Falling episodes: Status: Acute Plan: The patient will need physical therapy to increase her lower extremity strength to help decrease the risk of her falling in the hospital and I also after she goes home. (4) Stage 3b chronic kidney disease: Status: None Plan: Renal dosing of medications. Follow daily BUN/creatinine and estimated GFR levels. (5) Primary hypertension: Status: None Narrative Support Text: The patient's blood pressure is improved and is not spiking to systolic numbers of 200s since changing her over to the metoprolol tartrate. Plan: Continue metoprolol tartrate 50 mg twice daily and ramipril 2.5 mg 1 p.o. daily. (6) Generalized weakness: Status: Acute Narrative Support Text: Unknown reason why the patient continues to have generalized weakness at this time. It could be from deconditioning. But that would not extend playing her rapid change in mental status after she started Wellbutrin last week. MRI shows no evidence of stroke or intracranial problems going on at this time. Plan: Repeat routine labs again tomorrow. We will plan on ordering physical therapy consultation to start working the patient to try and build up her strength and see how well she ambulates. (7) Anorexia: Status: Acute Plan: Monitor for improvement of appetite after stopping Wellbutrin that the patient was started on last week. I will consider starting the patient on Megace if her appetite does not improve over the next day or so. (8) Dehydration: Status: Resolved Plan: IV hydration with one half normal saline. (9) Mental status alteration: Status: Acute Qualifiers: Altered mental status type: somnolence Qualified Code(s): R40.0 - Somnolence Narrative Support Text: MRI brain within normal limits. Plan: Unknown etiology in the mental status change the patient had. We will monitor to see if it improves after she has been off the Wellbutrin for few more days.
--- NOTE | 2024-05-28 20:42 | PCM.PROG ---
Progress Note Progress Note for Day of Date of Exam: 05/28/24 Subjective Subjective: During rounds this morning, the patient was unavailable as she was using the restroom. I came back to the hospital at noon today and saw her. She was lying in bed at that time. She reports she is still feeling bad and very weak. She states that she is feeling more weak than she was yesterday. She is eating a little bit but not a lot, according to her daughters. She still seems like she is depressed and not overly talkative. Her daughters and one of her neighbors are present here visiting with her. Her daughter states that she is still weak and still exhibiting symptoms of change in mental status. They think it has gotten a little better today compared to the previous days. 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 The patient's daughter's and I have agreed that it would be in the patient's best interest to get her into [facility] to do a 3-week treatment for inpatient rehabilitation with physical therapy. The patient is also agreeable to this. She has gotten weaker over the last few days and is having to use a walker now to get around instead of a cane. This has happened during the previous 2 days. The patient tells me that she has started coughing and feels more congested in her chest. The physical exam reveals that she has no rhonchi or expiratory Rales at this time. Her O2 sat is normal on room air. Chest x-ray yesterday showed that she has no infiltrates and no evidence of pulmonary edema or increased vascular congestion. Her white blood cell count has also increased to 12,600 from 11,900 yesterday. The patient's neutrophil count has increased from 8.3-9.0 today. With the patient having symptoms of cough now and increasing leukocytes with an increasing neutrophil count number I am concerned that she could be developing a bacterial infection somewhere. Since her chest x-rays are not showing any infiltrates or pneumonia I will plan on ordering a CT scan of her lungs in the morning with IV contrast. I will also go ahead and order a lactic acid this evening and check a CRP and ESR to see if there is any inflammatory processes going on at this time. I will start her on empiric treatment with ceftazidimeavibactam in case the patient does have underlying infection somewhere. Past Medical Family Social History Allergies: Allergies No Known Drug Allergies Allergy (Unknown, Verified 05/21/23 09:38) Onset Date: 10/18/2021 Review of Systems ROS: No change since H&P ROS changes noted: Increasing weakness/cough Vital Signs and I&O's Vital Signs: Vital Signs Temperature 98.2 F Temperature 97.8 F Pulse Rate [Brachial] 74 Pulse Rate [Brachial] 67 Respiratory Rate 18 Respiratory Rate 21 Respiratory Rate 18 Respiratory Rate 18 Blood Pressure [Right Arm] 176/87 Blood Pressure [Right Arm] 112/58 O2 Sat by Pulse Oximetry 92 O2 Sat by Pulse Oximetry 94 Intake and Output: Intake & Output 05/26/24 05/27/24 05/28/24 05/29/24 11:59 11:59 11:59 11:59 Intake Total 936 / 936 2939 / 2939 1584 / 1584 Balance 936 / 936 2939 / 2939 1584 / 1584 Physical Exam Oriented: Normal, Time, Person and Place Eyes: Normal Ear: Normal Nose: Normal Throat: Normal Respiratory: Normal Cardiovascular: Normal Auscultation: Bowel Sounds: Normal Tenderness: Normal Skin: Decreased Turgur Musculoskeletal: Left and Hip Psychiatric: Anxiety and Depression; negative Normal or Agitation Mood Description: Apathetic, Depressed, Flat, Sad, Withdrawn, Anxious and Labile; negative Angry, Fearful or Hostile Affect: Anxious, Depressed, Flat, Quiet and Normal; negative Angry, Hysterical or Violent Speech Pattern: Clear and Appropriate Laboratory and Diagnostics 05/28/24 05:48 05/28/24 05:48 Labs: 05/27/24 02:53 Urine,Clean Catch Urine Culture - Final Laboratory WBC 12.6 X10^3/uL (3.6-10.0) H 05/28/24 05:48 RBC 4.20 X10^6/uL (3.5-5.4) 05/28/24 05:48 Hgb 13.1 g/dL (12.0-16.0) 05/28/24 05:48 Hct 39.8 % (36.0-47.0) 05/28/24 05:48 MCV 94.9 fL (80.0-100.0) 05/28/24 05:48 MCH 31.3 pg (27.0-34.0) 05/28/24 05:48 MCHC 33.0 g/dL (33.0-35.0) 05/28/24 05:48 RDW 13.5 % (11.6-16.5) 05/28/24 05:48 Plt Count 257 X10^3/uL (150.0-450.0) 05/28/24 05:48 MPV 9.3 fL (7.4-11.0) 05/28/24 05:48 Neut % (Auto) 73.8 % (42.0-75.0) 05/28/24 05:48 Lymph % (Auto) 12.4 % (21.0-51.0) L 05/28/24 05:48 [place] % (Auto) 11.2 % (0.0-13.0) 05/28/24 05:48 Eos % (Auto) 1.8 % (0.9-2.9) 05/28/24 05:48 Baso % (Auto) 0.8 % (0.2-1.0) 05/28/24 05:48 Neut # (Auto) 9.3 x10^3/uL (2.2-4.8) H 05/28/24 05:48 Lymph # (Auto) 1.6 X10^3/uL (1.3-2.9) 05/28/24 05:48 [place] # (Auto) 1.4 x10^3/uL (0.3-0.8) H 05/28/24 05:48 Eos # (Auto) 0.2 x10^3/uL (0.0-0.2) 05/28/24 05:48 Baso # (Auto) 0.1 X10^3/uL (0.0-0.1) 05/28/24 05:48 Absolute Nucleated RBC 0.0 /100WBC 05/28/24 05:48 Sodium 141 mmol/L (136-145) 05/28/24 05:48 Corrected Sodium TNP 05/28/24 05:48 Potassium 3.8 mmol/L (3.5-5.1) 05/28/24 05:48 Chloride 106 mmol/L (98-107) 05/28/24 05:48 Carbon Dioxide 26.0 mmol/L (21-32) 05/28/24 05:48 BUN 20 mg/dL (7-18) H 05/28/24 05:48 Creatinine 1.33 mg/dL (0.55-1.02) H 05/28/24 05:48 Est GFR (MDRD) Af Amer 49 (>60) L 05/28/24 05:48 Est GFR (MDRD) Non-Af 41 (>60) L 05/28/24 05:48 Glucose 105 mg/dL (65-99) H 05/28/24 05:48 Calcium 9.6 mg/dL (8.5-10.1) 05/28/24 05:48 Corrected Calcium 10.6 mg/dL (8.5-10.1) H 05/28/24 05:48 Magnesium 1.9 mg/dL (2.0-2.9) L 05/26/24 15:30 Total Bilirubin 0.30 mg/dL (0.2-1.0) 05/28/24 05:48 AST 16 Units/L (15-37) 05/28/24 05:48 ALT 14 Units/L (12-78) 05/28/24 05:48 Alkaline Phosphatase 64 Units/L (46-116) 05/28/24 05:48 Troponin I High Sens 18.5 ng/L (4.0-60.0) 05/26/24 15:30 B-Natriuretic Peptide 334 pg/mL (0-79) H 05/28/24 05:48 Total Protein 6.7 g/dL (6.4-8.2) 05/28/24 05:48 Albumin 2.8 g/dL (3.4-5.0) L 05/28/24 05:48 Globulin 3.9 g/dL (2.5-4.5) 05/28/24 05:48 Albumin/Globulin Ratio 0.7 Ratio (1.1-2.1) L 05/28/24 05:48 Specimen Type Catherized urine 05/28/24 17:15 Urine Color Yellow (YELLOW) 05/28/24 17:15 Urine Appearance Clear (CLEAR) 05/28/24 17:15 Urine pH 6.0 (5.0 - 8.0) 05/28/24 17:15 Ur Specific [place] 1.020 (1.000-1.030) 05/28/24 17:15 Urine Protein Negative (NEGATIVE) 05/28/24 17:15 Urine Glucose (UA) Negative (NEGATIVE) 05/28/24 17:15 Urine Ketones Negative (NEGATIVE) 05/28/24 17:15 Urine Blood Negative (NEGATIVE) 05/28/24 17:15 Urine Nitrite Negative (NEGATIVE) 05/28/24 17:15 Urine Bilirubin Negative (NEGATIVE) 05/28/24 17:15 Urine Urobilinogen Normal (NORMAL) 05/28/24 17:15 Ur Leukocyte Esterase Negative (NEGATIVE) 05/28/24 17:15 Urine RBC 0-2 /HPF (0-3) 05/27/24 02:53 Urine WBC 0-2 /HPF (0-5) 05/27/24 02:53 Ur Squamous Epith Cells Rare /HPF (NEGATIVE) 05/27/24 02:53 Urine Bacteria Negative /HPF (NEGATIVE) 05/27/24 02:53 Ur Culture Indicated? Yes/culture set up 05/27/24 02:53 Radiology Reviewed: Yes Plan (1) Neutrophilic leukocytosis: Status: Acute Plan: Check blood cultures x 2, chest x-ray, urinalysis and culture and sensitivity of indicated. I will also check a lactic acid this evening and I will start the patient on empiric treatment with ceftazidime-Avibactam. This antibiotic will have to be renally dosed at 1.25 mg IV every 8 hours. (2) Difficulty in walking: Status: Acute Plan: We will plan on having physical therapy start working with the patient tomorrow. We will let her rest in the meantime. 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 (4) Falling episodes: Status: Acute Plan: The patient will need physical therapy to increase her lower extremity strength to help decrease the risk of her falling in the hospital and I also after she goes home. (5) Stage 3b chronic kidney disease: Status: None Plan: Renal dosing of medications. Follow daily BUN/creatinine and estimated GFR levels. (6) Primary hypertension: Status: None Plan: Continue metoprolol tartrate 50 mg twice daily and ramipril 2.5 mg 1 p.o. daily. (7) Generalized weakness: Status: Acute Plan: Repeat routine labs again tomorrow. We will plan on ordering physical therapy consultation to start working the patient to try and build up her strength and see how well she ambulates. (8) Anorexia: Status: Acute Plan: Monitor for improvement of appetite after stopping Wellbutrin that the patient was started on last week. I will consider starting the patient on Megace if her appetite does not improve over the next day or so. (9) Dehydration: Status: Resolved Plan: IV hydration with one half normal saline. (10) Mental status alteration: Status: Acute Qualifiers: Altered mental status type: somnolence Qualified Code(s): R40.0 - Somnolence Plan: Unknown etiology in the mental status change the patient had. We will monitor to see if it improves after she has been off the Wellbutrin for few more days.
[2024-05-28] MEDS ORDERED: ASPIRIN EC 81 MG PO SCH (21:00)
[2024-05-28] MEDS: RESTORIL CAP 15 MG PO SCH (21:00)
[2024-05-28] MEDS: NS IV SCH (21:02)
[2024-05-28] MEDS: AVYCAZ IV SCH (21:02)
[2024-05-28] MEDS: PATIENT'S HOME MEDICATION (Aspirin 81 mg Capsule) PO SCH (23:00)
[2024-05-29 01:03] VITALS: RESP 18
[2024-05-29] MEDS ORDERED: OMNIPAQUE 350 mg/mL 100 mL BTL 100 ML ONE (04:28)
[2024-05-29] MEDS ORDERED: NS 100 ML IV 100 ML ONE (04:28)
--- NOTE | 2024-05-29 05:44 | CT ---
PROCEDURE: Ct Chest with IV Contrast.HISTORY: LETHARGY, COUGH, INCREASING WBC/NEUTROPHILS; HTN, ME, RENAL DISEASE, OSTEOARTHRITIS SX: RIGHT HIP, MELANIE, APPY, 4 STENTS .TECHNIQUE: Axial images were performed through the chest with the administration of IV contrast with multiplanar reformations . Dose reduction techniques including Automated Exposure Control (AEC) and adjustment of mA and kV were utilized.COMPARISON: None.TECHNICAL QUALITY: Satisfactory.FINDINGS:Mild atherosclerosis and tortuosity thoracic aorta with no aneurysm or dissection.Mediastinum and hilar region show no masses or lymphadenopathy.Mild cardiomegaly with no pericardial fluid.Some mild dependent atelectasis lung bases. No pulmonary consolidation, masses, or pleural fluidVisualized upper abdomen shows previous cholecystectomy.No acute bony abnormality.IMPRESSION:1. Atherosclerosis aorta with no aneurysm or dissection.2. Mild cardiomegaly.3. No pulmonary consolidation.THIS IS AN ELECTRONICALLY VERIFIED FINAL REPORT05/29/2024 5:40 AM - Electronically signed by Yann Aaron MD
[2024-05-29 06:13] LABS: ERYTHROCYTE SEDIMENTATION RATE 45 MM/HOUR (0-20)
[2024-05-29 06:14] LABS: BASOPHILS # (AUTO) 0.1 X10^3/uL (0.0-0.1); EOSINOPHILS # (AUTO) 0.3 x10^3/uL (0.0-0.2); HEMATOCRIT 37.4 % (36.0-47.0); HEMOGLOBIN 12.4 g/dL (12.0-16.0); LYMPHOCYTES # (AUTO) 2.1 X10^3/uL (1.3-2.9); LYMPHOCYTES % (AUTO) 19.9 % (21.0-51.0); MEAN CORPUSCULAR HEMOGLOBIN 31.5 pg (27.0-34.0); MEAN CORPUSCULAR HGB CONC 33.1 g/dL (33.0-35.0); MEAN PLATELET VOLUME 9.4 fL (7.4-11.0); MONOCYTES # (AUTO) 1.3 x10^3/uL (0.3-0.8); MONOCYTES % (AUTO) 12.3 % (0.0-13.0); NEUTROPHILS # (AUTO) 6.8 x10^3/uL (2.2-4.8); NEUTROPHILS % (AUTO) 63.8 % (42.0-75.0); PLATELET COUNT 241 X10^3/uL (150.0-450.0); RED BLOOD COUNT 3.94 X10^6/uL (3.5-5.4); RED CELL DISTRIBUTION WIDTH 13.4 % (11.6-16.5); WHITE BLOOD COUNT 10.6 X10^3/uL (3.6-10.0)
[2024-05-29 06:29] LABS: ALANINE AMINOTRANSFERASE 12 Units/L (12-78); ALBUMIN 2.6 g/dL (3.4-5.0); ALKALINE PHOSPHATASE 74 Units/L (46-116); ASPARTATE AMINO TRANSFERASE 15 Units/L (15-37); BLOOD UREA NITROGEN 22 mg/dL (7-18); CALCIUM 8.8 mg/dL (8.5-10.1); CARBON DIOXIDE 25.2 mmol/L (21-32); CHLORIDE 105 mmol/L (98-107); COR CA(FOR HYPOALB) 9.9 mg/dL (8.5-10.1); CREATININE 1.37 mg/dL (0.55-1.02); GLUCOSE 100 mg/dL (65-99); MAGNESIUM 1.8 mg/dL (2.0-2.9); POTASSIUM 4.1 mmol/L (3.5-5.1); SODIUM 138 mmol/L (136-145); TOTAL PROTEIN 6.4 g/dL (6.4-8.2); eGFR NON BLACK RACES 39 (>60)
[2024-05-29] MEDS ORDERED: CONSULT PHARMACY - POTASSIUM & MAGNESIUM XX SCH (07:00)
[2024-05-29 08:04] VITALS: BP 179/92; PULSE 65; TEMP 97.6; O2SAT 99
[2024-05-29] MEDS: SYNTHROID 50 mcg TAB PO SCH (08:53)
[2024-05-29] MEDS: ASPIRIN EC 81 MG PO SCH (08:54)
[2024-05-29] MEDS ORDERED: PATIENT'S HOME MEDICATION (Solifenacin 5 mg tablet) PO SCH (09:00)
[2024-05-29] MEDS ORDERED: NS 1/2 1,000 ML IV 1,000 ML IV ONE (09:22)
== END 2024-05-29 11:20 | DRG 948 ==
LOC: MED/SURG → OBSVTOIN 14:44
PROVIDERS: ADMIT Family Medicine; ATTEND Family Medicine
DX: Z68.31 Body mass index [BMI] 31.0-31.9, adult; Z86.73 Personal history of transient ischemic attack (TIA), and cerebral infarction without residual deficits; Z65.8 Other specified problems related to psychosocial circumstances; I12.9 Hypertensive chronic kidney disease with stage 1 through stage 4 chronic kidney disease, or unspecified chronic kidney disease; R41.82 Altered mental status, unspecified; R63.0 Anorexia; R70.0 Elevated erythrocyte sedimentation rate; N18.32 Chronic kidney disease, stage 3b; R60.0 Localized edema; E86.0 Dehydration; I25.10 Atherosclerotic heart disease of native coronary artery without angina pectoris; F05 Delirium due to known physiological condition; D72.828 Other elevated white blood cell count; E78.5 Hyperlipidemia, unspecified; R29.6 Repeated falls; R06.02 Shortness of breath; E83.40 Disorders of magnesium metabolism, unspecified; K21.9 Gastro-esophageal reflux disease without esophagitis; R53.1 Weakness